=== PATIENT | female | born 1935 | race Native Hawaiian/Other Pacific Islander ===

== ENCOUNTER 2018-04-18 14:51 | Observation (INO) | payer MEDICARE, OTHER ==
[2018-04-18] VITALS (7 sets, daily range): BP systolic 102–138; BP diastolic 55–89; PULSE 73–78; RESP 18–20; TEMP 98.2–98.5; O2SAT 94–96
[~2018-04-18] VITALS: Ht 157.5 cm; Wt 70.0 kg
[~2018-04-18 14:51] MED LIST: CHOL4 PO; Calcium Carbonate CHEW; ENOX80P SQ; KCL20 PO; MAGN400 PO; MEGE40TA PO; MIRTA15 PO; PROT40TA PO; TRAM50 PO; ZOFR8TAB PO
[2018-04-18] MEDS ORDERED: SODIUM CHLOR 0.9% 1000 ML INJ 1,000 ML IV ONE (15:08)
[2018-04-18] MEDS ORDERED: ONDANSETRON ODT 4 MG TAB PO/SL ONE (15:15)
[2018-04-18] MEDS ORDERED: SODIUM CHLORIDE 0.9% FLUSH 10 ML FLUSH IVF PRN (15:15)
--- NOTE | 2018-04-18 15:20 | PD ---
HPI Chief Complaint: Syncope/Near-Syncope Time Seen by Provider: 14:57 Travel History International Travel<30 days: No Contact w/Intl Traveler<30days: No Traveled to known affect area: No History of Present Illness HPI The patient is a 82-year-old female who presents to emergency department via EMS for near syncope. The patient was at a park earlier today, sitting for prolonged period of time, which she suddenly became lightheaded, dizzy, and had a near syncopal episode. The patient states she became nauseated and broke out in a sweat. The patient was administered IV fluids by eating prior to arrival and her symptoms have significantly improved. The patient does states she has had some similar episodes in the past at home, will lay down and her symptoms will improve. However, the patient thinks she was sitting upright for too long today. The patient does have a history of multiple myeloma and is currently treated by Dr. Ascencio the oncologist. The patient is also followed by her layout technician, Dr. Zuleta who has recently performed an echocardiogram with an EF of 45%. The patient did complain of mild substernal chest discomfort after the episode today which has improved, but is still present upon arrival. She denies any acute shortness of breath. PFSH Past Medical History Arthritis: Yes Asthma: Yes ( YOUTH) Blood Disorders: No Cancer: No Cardiovascular Problems: Yes High Cholesterol: No Chest Pain: Yes Congestive Heart Failure: No Cerebrovascular Accident: No Diabetes: No Endocrine: No Gastrointestinal Disorders: Yes Glaucoma: Yes (LEFT EYE) Genitourinary: Yes Hiatal Hernia: Yes Hypertension: Yes Immune Disorder: No Implanted Vascular Access Dvce: Yes Musculoskeletal: Yes Neurologic: No Psychiatric: No Reproductive: No Respiratory: No Seizures: No ?: Not Menopausal: Yes Past Surgical History Abdominal Surgery: Yes (APPY, CHOLECYSTECTOMY) Appendectomy: Yes Cardiac Surgery: Yes (CARDIAC CATH 10/06, 2 YEARS BEFORE THAT) Cholecystectomy: Yes Ear Surgery: No Endocrine Surgery: No Genitourinary Surgery: No Gynecologic Surgery: No Joint Replacement: Yes (LEFT KNEE REPLACEMENT) Oral Surgery: No Other Surgery: Yes Social History Alcohol Use: No Tobacco Use: No Substance Use: No Allergies-Medications (Allergen,Severity, Reaction): Coded Allergies: acetaminophen (Unverified Allergy, Severe, Rash, 07/08/17) ITCHING ALSO. PERCOCET ALLERGY INFORMATION PROVIDED BY PATIENT'S DOCTOR WHO IS ALSO HER BROTHER oxycodone (Unverified Allergy, Severe, Rash, 07/08/17) ITCHING ALSO. PERCOCET ALLERGY INFORMATION PROVIDED BY PATIENT'S DOCTOR WHO IS ALSO HER BROTHER rofecoxib (Unverified Allergy, Severe, ITCHING, 07/08/17) Reported Meds & Prescriptions Reported Meds & Active Scripts Active Reported Multiple Vitamin 1 Tab 1 Tab PO DAILY Imodium A-D (Loperamide HCl) 2 Mg Capsule 2 Mg PO Q6H PRN Revlimid (Lenalidomide) 10 Mg Capsule 10 Mg PO DAILY Lexapro (Escitalopram Oxalate) 20 Mg Tab 10 Mg PO DAILY Vasotec (Enalapril Maleate) 5 Mg Tab 5 Mg PO BID Calcium 600 with Vitamin D (Calcium Carbonate-Cholecalciferol) 600-400 mg-Unit Tab 1 Tab PO DAILY Eliquis (Apixaban) 5 Mg Tab 5 Mg PO BID Review of Systems Except as stated in HPI: all other systems reviewed are Neg HENT: Positive: Lightheadedness Cardiovascular: Positive: Chest Pain or Discomfort, Diaphoresis, Syncope (Near- syncope) Respiratory: No: Shortness of Breath Gastrointestinal: Positive: Nausea, No: Vomiting, Abdominal Pain Musculoskeletal: Positive: Weakness Neurologic: Positive: Weakness, Dizziness, Syncope (Near-syncope) Physical Exam Narrative GENERAL: Awake, alert, pleasant 82-year-old female who appears her stated age and is in no acute respiratory distress. SKIN: Focused skin assessment warm/dry. HEAD: Atraumatic. Normocephalic. EYES: No injection or drainage. ENT: No nasal bleeding or discharge. Mucous membranes pink and moist. NECK: Trachea midline. No JVD. CARDIOVASCULAR: Regular rate and rhythm. No murmur appreciated. RESPIRATORY: No accessory muscle use. Clear to auscultation. Breath sounds equal bilaterally. GASTROINTESTINAL: Abdomen soft, non-tender, nondistended. MUSCULOSKELETAL: No obvious deformities. No clubbing. No cyanosis. Trace edema bilaterally. NEUROLOGICAL: Awake and alert. No obvious cranial nerve deficits. Motor grossly within normal limits. Normal speech. PSYCHIATRIC: Appropriate mood and affect; insight and judgment normal. Data Data Last Documented VS Vital Signs Date Time Temp Pulse Resp B/P (MAP) Pulse Ox O2 Delivery O2 Flow Rate FiO2 04/18/18 16:28 74 20 113/57 (75) 76 20 127/59 (81) 82 20 102/55 (71) 04/18/18 16:00 96 Room Air 04/18/18 15:16 98.5 Orders Orders Electrocardiogram (04/18/18 15:08) Complete Blood Count With Diff (04/18/18 15:08) Comprehensive Metabolic Panel (04/18/18 15:08) Magnesium (Mg) (04/18/18 15:08) Ckmb (Isoenzyme) Profile (04/18/18 15:08) Troponin I (04/18/18 15:08) Ecg Monitoring (04/18/18 15:08) Iv Access Insert/Monitor (04/18/18 15:08) Oximetry (04/18/18 15:08) Ondansetron Odt (Zofran Odt) (04/18/18 15:15) Sodium Chloride 0.9% Flush (Ns Flush) (04/18/18 15:15) Sodium Chlor 0.9% 1000 Ml Inj (Ns 1000 M (04/18/18 15:08) Orthostatic Vital Signs (04/18/18 15:08) Sodium Chlorid 0.9% 500 Ml Inj (Ns 500 M (04/18/18 16:15) Consult Cardiology (04/18/18 ) Place In Observation (04/18/18 ) Code Status (04/18/18 16:38) Vital Signs (Adult) Q4H (04/18/18 16:38) Activity Oob Ad Annette (04/18/18 16:38) Postal Service Clerk / Telemetry GEOVANNA.Q8H (04/18/18 16:38) Diet Heart Healthy (04/18/18 Dinner) Sodium Chloride 0.9% Flush (Ns Flush) (04/18/18 16:45) Sodium Chloride 0.9% Flush (Ns Flush) (04/18/18 21:00) Complete Blood Count With Diff (04/19/18 06:00) Basic Metabolic Panel (Bmp) (04/19/18 06:00) Holter Monitor Recording (04/18/18 ) Us Carotid Arteries Comp Bilat (04/18/18 ) 1/2 Ns + Kcl 20 Meq Inj (1/2 Ns + Kcl 20 (04/18/18 16:45) Consult Pt Eval & Treat (04/18/18 16:38) Enalapril (Vasotec) (04/18/18 21:00) Patient Own Medication (04/19/18 09:00) Escitalopram (Lexapro) (04/19/18 09:00) Admit Order (Ed Use Only) (04/18/18 16:50) Labs Laboratory Tests Test 04/18/18 15:30 White Blood Count 3.9 TH/MM3 Red Blood Count 3.95 MIL/MM3 Hemoglobin 12.1 GM/DL Hematocrit 36.1 % Mean Corpuscular Volume 91.6 FL Mean Corpuscular Hemoglobin 30.7 PG Mean Corpuscular Hemoglobin Concent 33.5 % Red Cell Distribution Width 17.1 % Platelet Count 168 TH/MM3 Mean Platelet Volume 9.0 FL Neutrophils (%) (Auto) 69.5 % Lymphocytes (%) (Auto) 17.5 % Monocytes (%) (Auto) 10.0 % Eosinophils (%) (Auto) 2.6 % Basophils (%) (Auto) 0.4 % Neutrophils # (Auto) 2.7 TH/MM3 Lymphocytes # (Auto) 0.7 TH/MM3 Monocytes # (Auto) 0.4 TH/MM3 Eosinophils # (Auto) 0.1 TH/MM3 Basophils # (Auto) 0.0 TH/MM3 CBC Comment DIFF FINAL Differential Comment Blood Urea Nitrogen 22 MG/DL Creatinine 1.23 MG/DL Random Glucose 98 MG/DL Total Protein 6.7 GM/DL Albumin 2.2 GM/DL Calcium Level 7.8 MG/DL Magnesium Level 1.9 MG/DL Alkaline Phosphatase 67 U/L Aspartate Amino Transf (AST/SGOT) 11 U/L Alanine Aminotransferase (ALT/SGPT) 16 U/L Total Bilirubin 0.7 MG/DL Sodium Level 142 MEQ/L Potassium Level 3.6 MEQ/L Chloride Level 110 MEQ/L Carbon Dioxide Level 25.4 MEQ/L Anion Gap 7 MEQ/L Estimat Glomerular Filtration Rate 42 ML/MIN Total Creatine Kinase 28 U/L Troponin I LESS THAN 0.02 NG/ML MDM Medical Decision Making Medical Screen Exam Complete: Yes Emergency Medical Condition: Yes Medical Record Reviewed: Yes Interpretation(s) EKG reveals sinus rhythm with frequent ventricular premature complex, trigeminy. Nonspecific T-wave changes. Moderate intraventricular conduction delay. Laboratory Tests Test 04/18/18 15:30 White Blood Count 3.9 TH/MM3 Red Blood Count 3.95 MIL/MM3 Hemoglobin 12.1 GM/DL Hematocrit 36.1 % Mean Corpuscular Volume 91.6 FL Mean Corpuscular Hemoglobin 30.7 PG Mean Corpuscular Hemoglobin Concent 33.5 % Red Cell Distribution Width 17.1 % Platelet Count 168 TH/MM3 Mean Platelet Volume 9.0 FL Neutrophils (%) (Auto) 69.5 % Lymphocytes (%) (Auto) 17.5 % Monocytes (%) (Auto) 10.0 % Eosinophils (%) (Auto) 2.6 % Basophils (%) (Auto) 0.4 % Neutrophils # (Auto) 2.7 TH/MM3 Lymphocytes # (Auto) 0.7 TH/MM3 Monocytes # (Auto) 0.4 TH/MM3 Eosinophils # (Auto) 0.1 TH/MM3 Basophils # (Auto) 0.0 TH/MM3 CBC Comment DIFF FINAL Differential Comment Blood Urea Nitrogen 22 MG/DL Creatinine 1.23 MG/DL Random Glucose 98 MG/DL Total Protein 6.7 GM/DL Albumin 2.2 GM/DL Calcium Level 7.8 MG/DL Magnesium Level 1.9 MG/DL Alkaline Phosphatase 67 U/L Aspartate Amino Transf (AST/SGOT) 11 U/L Alanine Aminotransferase (ALT/SGPT) 16 U/L Total Bilirubin 0.7 MG/DL Sodium Level 142 MEQ/L Potassium Level 3.6 MEQ/L Chloride Level 110 MEQ/L Carbon Dioxide Level 25.4 MEQ/L Anion Gap 7 MEQ/L Estimat Glomerular Filtration Rate 42 ML/MIN Total Creatine Kinase 28 U/L Troponin I LESS THAN 0.02 NG/ML Differential Diagnosis Differential diagnosis includes vasovagal syncope, cardiogenic syncope, arrhythmia, electrolyte abnormality, dehydration, overexertion, deconditioning, symptomatic anemia. Narrative Course IV was established, labs are drawn and sent, and the patient was placed on cardiac telemetry monitoring and continuous pulse oximetry monitoring. EKG was ordered and interpreted. Orthostatic vital signs are obtained. The patient was administered IV fluids. The patient's creatinine was slightly elevated, 1.23, baseline appears to be 0.7-0.8, most likely secondary to mild dehydration. Initial troponin was less than 0.02. The patient's EKG did reveal trigeminy, patient has been evaluated by her layout technician, Dr. Zuleta, recently. I discussed the patient with her layout technician, Dr. Zuleta, at 4:15 PM. He requested the patient be 23 hour observation to the medical service with a consultation to his service and the on-call layout technician will evaluate the patient. The patient does have acute kidney injury, trigeminy, with near syncope. Could be dehydration and orthostatic changes versus arrhythmia. Therefore, I believe it is reasonable to make the patient a 23 hour observation. Physician Communication Physician Communication The on-call [facility] doctor was paged for 23 hour observation. I discussed patient with Dr. Zacarias who agrees with 23 hour observation. Diagnosis Primary Impression: Near syncope Additional Impressions: Acute kidney injury Trigeminy Admitting Information Admitting Physician Requests: Observation Condition: Stable Sarwat Ramos MD April 18, 2018 15:20
[2018-04-18 15:53] LABS: AUTOMATED NEUTROPHIL # 2.7 TH/MM3 (1.8-7.7); BASOPHIL % 0.4 % (0.0-2.0); EOSINOPHIL # 0.1 TH/MM3 (0-0.4); EOSINOPHIL % 2.6 % (0.0-4.0); HEMATOCRIT 36.1 % (35.0-46.0); HEMOGLOBIN 12.1 GM/DL (11.6-15.3); LYMPH % 17.5 % (9.0-44.0); LYMPHOCYTE # 0.7 TH/MM3 (1.0-4.8); MEAN CELL VOLUME 91.6 FL (80.0-100.0); MEAN CORPUSCULAR HEMOGLOBIN 30.7 PG (27.0-34.0); MEAN CORPUSCULAR HGB CONC 33.5 % (32.0-36.0); MONOCYTE # 0.4 TH/MM3 (0-0.9); NEUT % 69.5 % (16.0-70.0); PLATELET COUNT 168 TH/MM3 (150-450); RED BLOOD COUNT 3.95 MIL/MM3 (4.00-5.30); RED CELL DISTRIBUTION WIDTH 17.1 % (11.6-17.2); WHITE BLOOD COUNT 3.9 TH/MM3 (4.0-11.0)
[2018-04-18 16:02] LABS: ALBUMIN 2.2 GM/DL (3.4-5.0); AST (GOT) 11 U/L (15-37); BICARBONATE 25.4 MEQ/L (21.0-32.0); BLOOD UREA NITROGEN 22 MG/DL (7-18); CALCIUM 7.8 MG/DL (8.5-10.1); CHLORIDE 110 MEQ/L (98-107); CREATININE 1.23 MG/DL (0.50-1.00); GLOMERULAR FILTRATION RATE 42 ML/MIN (>89); GLUCOSE,RANDOM 98 MG/DL (74-106); MAGNESIUM 1.9 MG/DL (1.5-2.5); SODIUM (NA) 142 MEQ/L (136-145)
[2018-04-18 16:03] LABS: ALT (GPT) 16 U/L (10-53)
[2018-04-18 16:07] LABS: ALKALINE PHOSPHATASE 67 U/L (45-117); TOTAL BILIRUBIN ADULT 0.7 MG/DL (0.2-1.0); TOTAL PROTEIN 6.7 GM/DL (6.4-8.2); TROPONIN I LESS THAN 0.02 NG/ML (0.02-0.05)
[2018-04-18] MEDS ORDERED: SODIUM CHLORID 0.9% 500 ML INJ 500 ML IV ONE (16:15)
[2018-04-18] MEDS ORDERED: APIX5TAB PO (16:16)
[2018-04-18] MEDS ORDERED: LEXA20TA PO (16:16)
[2018-04-18] MEDS ORDERED: CALC1TAB87 PO (16:16)
[2018-04-18] MEDS ORDERED: LENA10CA PO (16:16)
[2018-04-18] MEDS ORDERED: ENAL5TAB98 PO (16:16)
[2018-04-18] MEDS ORDERED: MULTTAB67 PO (16:16)
[2018-04-18] MEDS ORDERED: LOPE-1 PO (16:16)
[2018-04-18] MEDS ORDERED: SODIUM CHLORIDE 0.9% FLUSH 10 ML FLUSH IV FLUSH PRN (16:45)
--- NOTE | 2018-04-18 17:30 | HHI.HP ---
HPI Service [facility] Hospitalists Primary Care Physician Kaylynn Leary MD Admission Diagnosis Near-syncope, trigeminy, acute kidney injury Chief Complaint: Near syncope Travel History International Travel<30 Days: No Contact w/Intl Traveler <30 Da: No Traveled to Known Affected Are: No History of Present Illness Pt is an 82 y/o F with multiple myeloma under the care of Dr. Robert Ascencio. Pt presented to the ER with c/o near syncopal episode prior to arrival. Pt states that she had been sitting for an extended period of time. Pt reports that she suddenly became lightheaded and nearly passed out. Pt did NOT fall. Pt did NOT suffer any injuries with this episode. Pt denies any recent trauma. Pt reports that the episode lasted for approximately 30 minutes and then resolved spontaneously. Pt was able to eat and drink prior to arrival. When I evaluated the pt in the ER, she appeared quite comfortable and had NO acute complaints. Pt denied chest pain although ER physician noted c/o mild chest pain. Pt had echocardiogram with her Rejected Items Clerk, Dr. Zuleta. Echocardiogram performed (04/09/16) showed EF of 45%. Pt admitted to observation status at [facility] Review of Systems Constitutional: DENIES: Diaphoretic episodes, Fatigue, Fever, Weight gain, Weight loss, Chills, Dizziness, Change in appetite, Night Sweats Endocrine: DENIES: Heat/cold intolerance, Polydipsia, Polyuria, Polyphagia Eyes: DENIES: Blurred vision, Diplopia, Eye inflammation, Eye pain, Vision loss , Photosensitivity, Double Vision Ears, nose, mouth, throat: DENIES: Tinnitus, Hearing loss, Vertigo, Nasal discharge, Oral lesions, Throat pain, Hoarseness, Ear Pain, Running Nose, Epistaxis, Sinus Pain, Toothache, Odynophagia Respiratory: DENIES: Apneas, Cough, Snoring, Wheezing, Hemoptysis, Sputum production, Shortness of breath Cardiovascular: DENIES: Chest pain, Palpitations, Syncope, Dyspnea on Exertion , PND, Lower Extremity Edema, Orthopnea, Claudication Gastrointestinal: DENIES: Abdominal pain, Black stools, Bloody stools, BRB per rectum, Constipation, Diarrhea, GERD, Nausea, Reflux, Vomiting, Difficulty Swallowing, Anorexia Genitourinary: DENIES: Urinary frequency, Urinary incontinence, Urgency, Hematuria, Dysuria, Nocturia Musculoskeletal: DENIES: Joint pain, Muscle aches, Stiffness, Joint Swelling, Back pain, Neck pain Integumentary: DENIES: Abnormal pigmentation, Pruritus, Rash, Nail changes, Breast masses, Breast skin changes, Nipple discharge Hematologic/lymphatic: DENIES: Bruising, Lymphadenopathy Immunologic/allergic: DENIES: Eczema, Urticaria Neurologic: DENIES: Abnormal gait, Headache, Localized weakness, Paresthesias, Seizures, Speech Problems, Tremor, Poor Balance Psychiatric: DENIES: Anxiety, Confusion, Mood changes, Depression, Hallucinations, Agitation, Suicidal Ideation, Homicidal Ideation, Delusions, History of Bipolar, History of Schizophrenia Past Family Social History Past Medical History Anemia Arthritis Blood Clots - Glaucoma - Hyperlipidemia - Left arm thrombophlebitis - Multiple Myeloma (Stage III IgG lambda multiple myeloma. She presented with increased back pain, - mild renal insufficiency - chronic anemia Past Surgical History Anal fissurectomy Appendectomy Cataract removal Cholecystectomy Knee replacement Colonoscopy in 2008 Reported Medications Reported Meds & Active Scripts Active Reported Multiple Vitamin 1 Tab 1 Tab PO DAILY Imodium A-D (Loperamide HCl) 2 Mg Capsule 2 Mg PO Q6H PRN Revlimid (Lenalidomide) 10 Mg Capsule 10 Mg PO DAILY Lexapro (Escitalopram Oxalate) 20 Mg Tab 10 Mg PO DAILY Vasotec (Enalapril Maleate) 5 Mg Tab 5 Mg PO BID Calcium 600 with Vitamin D (Calcium Carbonate-Cholecalciferol) 600-400 mg-Unit Tab 1 Tab PO DAILY Eliquis (Apixaban) 5 Mg Tab 5 Mg PO BID Allergies: Coded Allergies: acetaminophen (Unverified Allergy, Severe, Rash, 07/08/17) ITCHING ALSO. PERCOCET ALLERGY INFORMATION PROVIDED BY PATIENT'S DOCTOR WHO IS ALSO HER BROTHER oxycodone (Unverified Allergy, Severe, Rash, 07/08/17) ITCHING ALSO. PERCOCET ALLERGY INFORMATION PROVIDED BY PATIENT'S DOCTOR WHO IS ALSO HER BROTHER rofecoxib (Unverified Allergy, Severe, ITCHING, 07/08/17) Family History Ms. Lowe has 2 brothers: 2 alive. She has 1 sister who is alive. She has 1 son who is alive. Social History Ms. Lowe is . Ms. Loew has never smoked. She has no history of drinking Physical Exam Vital Signs Vital Signs Date Time Temp Pulse Resp B/P (MAP) Pulse Ox O2 Delivery O2 Flow Rate FiO2 04/18/18 16:28 74 20 113/57 (75) 76 20 127/59 (81) 82 20 102/55 (71) 04/18/18 16:00 78 18 138/89 (105) 96 Room Air 04/18/18 15:16 98.5 74 18 125/56 (79) 95 Room Air 04/18/18 15:16 78 20 96 Room Air 04/18/18 15:13 98.5 78 18 125/56 (79) 94 Room Air Physical Exam GENERAL: This is a well-nourished, well-developed patient, in no apparent distress. SKIN: No rashes, ecchymoses or lesions. Cool and dry. HEAD: Atraumatic. Normocephalic. No temporal or scalp tenderness. EYES: Pupils equal round and reactive. Extraocular motions intact. No scleral icterus. No injection or drainage. ENT: Nose without bleeding, purulent drainage or septal hematoma. Throat without erythema, tonsillar hypertrophy or exudate. Uvula midline. Airway patent. NECK: Trachea midline. No JVD or lymphadenopathy. Supple, nontender, no meningeal signs. CARDIOVASCULAR: Regular rate and rhythm without murmurs, gallops, or rubs. RESPIRATORY: Clear to auscultation. Breath sounds equal bilaterally. No wheezes , rales, or rhonchi. GASTROINTESTINAL: Abdomen soft, non-tender, nondistended. No hepato-splenomegaly , or palpable masses. No guarding. MUSCULOSKELETAL: Extremities without clubbing, cyanosis, or edema. No joint tenderness, effusion, or edema noted. No calf tenderness. Negative Homans sign bilaterally. NEUROLOGICAL: Awake and alert. Cranial nerves II through XII intact. Motor and sensory grossly within normal limits. Five out of 5 muscle strength in all muscle groups. Normal speech. Laboratory Laboratory Tests Test 04/18/18 15:30 White Blood Count 3.9 Red Blood Count 3.95 Hemoglobin 12.1 Hematocrit 36.1 Mean Corpuscular Volume 91.6 Mean Corpuscular Hemoglobin 30.7 Mean Corpuscular Hemoglobin Concent 33.5 Red Cell Distribution Width 17.1 Platelet Count 168 Mean Platelet Volume 9.0 Neutrophils (%) (Auto) 69.5 Lymphocytes (%) (Auto) 17.5 Monocytes (%) (Auto) 10.0 Eosinophils (%) (Auto) 2.6 Basophils (%) (Auto) 0.4 Neutrophils # (Auto) 2.7 Lymphocytes # (Auto) 0.7 Monocytes # (Auto) 0.4 Eosinophils # (Auto) 0.1 Basophils # (Auto) 0.0 CBC Comment DIFF FINAL Differential Comment Blood Urea Nitrogen 22 Creatinine 1.23 Random Glucose 98 Total Protein 6.7 Albumin 2.2 Calcium Level 7.8 Magnesium Level 1.9 Alkaline Phosphatase 67 Aspartate Amino Transf (AST/SGOT) 11 Alanine Aminotransferase (ALT/SGPT) 16 Total Bilirubin 0.7 Sodium Level 142 Potassium Level 3.6 Chloride Level 110 Carbon Dioxide Level 25.4 Anion Gap 7 Estimat Glomerular Filtration Rate 42 Total Creatine Kinase 28 Troponin I LESS THAN 0.02 Result Diagram: 04/18/18 1530 04/18/18 1530 Imaging Last Impressions Carotid Artery Ultrasound 04/19/18 0000 Signed Impressions: CONCLUSION: 1. There is tortuosity of the internal and external vessels bilaterally. 2. No focal high-grade or hemodynamically significant stenosis is demonstrated . Caprini VTE Risk Assessment Caprini VTE Risk Assessment: Mod/High Risk (score >= 2) Caprini Risk Assessment Model Point Value = 1 Point Value = 2 Point Value = 3 Point Value = 5 Age 41-60 Minor surgery BMI > 25 kg/m2 Swollen legs Varicose veins or History of unexplained or recurrent spontaneous Oral contraceptives or hormone replacement Sepsis (< 1 month) Serious lung disease, including pneumonia (< 1 month) Abnormal pulmonary function Acute myocardial infarction Congestive heart failure (< 1 month) History of inflammatory bowel disease Medical patient at bed rest Age 61-74 Arthroscopic surgery Major open surgery (> 45 min) Laparoscopic surgery (> 45 min) Malignancy Confined to bed (> 72 hours) Immobilizing plaster cast Central venous access Age >= 75 History of VTE Family history of VTE Factor V Leiden Prothrombin [id number] Lupus anticoagulant Anticardiolipin antibodies Elevated serum homocysteine Heparin-induced thrombocytopenia Other congenital or acquired thrombophilia Stroke (< 1 month) Elective arthroplasty Hip, pelvis, or leg fracture Acute spinal cord injury (< 1 month) Prophylaxis Regimen Total Risk Factor Score Risk Level Prophylaxis Regimen 0-1 Low Early ambulation 2 Moderate Order ONE of the following: *Sequential Compression Device (SCD) *Heparin 5000 units SQ BID 3-4 Higher Order ONE of the following medications: *Heparin 5000 units SQ TID *Enoxaparin/Lovenox 40 mg SQ daily (WT < 150 kg, CrCl > 30 mL/min) *Enoxaparin/Lovenox 30 mg SQ daily (WT < 150 kg, CrCl > 10-29 mL/min) *Enoxaparin/Lovenox 30 mg SQ BID (WT < 150 kg, CrCl > 30 mL/min) AND/OR *Sequential Compression Device (SCD) 5 or more Highest Order ONE of the following medications: *Heparin 5000 units SQ TID (Preferred with Epidurals) *Enoxaparin/Lovenox 40 mg SQ daily (WT < 150 kg, CrCl > 30 mL/min) *Enoxaparin/Lovenox 30 mg SQ daily (WT < 150 kg, CrCl > 10-29 mL/min) *Enoxaparin/Lovenox 30 mg SQ BID (WT < 150 kg, CrCl > 30 mL/min) AND *Sequential Compression Device (SCD) Assessment and Plan Problem List: (1) Near syncope ICD Codes: R55 - Syncope and collapse Status: Acute Plan: - Pt is an 82 y/o F with multiple myeloma under the care of Dr. Robert Ascencio. Pt presented to the ER with c/o near syncopal episode prior to arrival. - Pt states that she had been sitting for an extended period of time. Pt reports that she suddenly became lightheaded and nearly passed out. - Pt did NOT fall. Pt did NOT suffer any injuries with this episode. Pt denies any recent trauma. - Pt reports that the episode lasted for approximately 30 minutes and then resolved spontaneously. Pt was able to eat and drink prior to arrival. - When I evaluated the pt in the ER, she appeared quite comfortable and had NO acute complaints. Pt denied chest pain although ER physician noted c/o mild chest pain. - Pt had echocardiogram with her Rejected Items Clerk, Dr. Zuleta. Echocardiogram performed (04/09/16) showed EF of 45%. - observe on telemetry - obtain holter - consult Cardiology - IVFs - repeat CBC, BMP, Mag in AM - obtain PT eval - b/l SCDs for DVT prophylaxis - supportive care - case discussed by phone with the pt's brother, Dr. Kaylynn Ahumada (5/26/18) (2) Multiple myeloma ICD Codes: C90.00 - Multiple myeloma Status: Acute Plan: - Pt follows with Dr. Robert Ascencio, Oncology (3) HTN (hypertension) ICD Codes: I10 - HTN (hypertension) Status: Chronic Plan: - stable - continue outpt lisinopril Problem Qualifiers (1) Multiple myeloma: Qualified Codes: C90.00 - Multiple myeloma not having achieved remission (2) HTN (hypertension): Qualified Codes: I10 - Essential (primary) hypertension Uday Zacarias DO April 18, 2018 17:30
[2018-04-18] MEDS: APIXABAN 5 MG TABLET PO SCH (20:40)
[2018-04-18] MEDS: ENALAPRIL MALEATE 5 MG TAB PO SCH (20:40)
[2018-04-18] MEDS: SODIUM CHLORIDE 0.9% FLUSH 10 ML FLUSH IV FLUSH SCH (20:40)
[2018-04-18] MEDS: 1/2 NS + KCL 20 MEQ INJ 1,000 ML IV SCH (20:40)
[2018-04-19 01:03] VITALS: BP 142/71; PULSE 51; RESP 17; TEMP 98.2; O2SAT 94
[2018-04-19 02:54] VITALS: BP 143/68; PULSE 74; RESP 18; TEMP 97.9; O2SAT 94
[2018-04-19] MEDS ORDERED: traMADol HCL 50 MG TAB PO PRN (03:30)
[2018-04-19] MEDS: 1/2 NS + KCL 20 MEQ INJ 1,000 ML IV SCH (03:31)
[2018-04-19 07:54] LABS: AUTOMATED NEUTROPHIL # 1.5 TH/MM3 (1.8-7.7); BASOPHIL % 0.8 % (0.0-2.0); EOSINOPHIL # 0.2 TH/MM3 (0-0.4); EOSINOPHIL % 5.7 % (0.0-4.0); HEMATOCRIT 32.5 % (35.0-46.0); HEMOGLOBIN 10.9 GM/DL (11.6-15.3); LYMPH % 23.4 % (9.0-44.0); LYMPHOCYTE # 0.7 TH/MM3 (1.0-4.8); MEAN CELL VOLUME 91.4 FL (80.0-100.0); MEAN CORPUSCULAR HEMOGLOBIN 30.6 PG (27.0-34.0); MEAN CORPUSCULAR HGB CONC 33.5 % (32.0-36.0); MEAN PLATELET VOLUME 9.3 FL (7.0-11.0); MONO % 16.6 % (0.0-8.0); MONOCYTE # 0.5 TH/MM3 (0-0.9); NEUT % 53.5 % (16.0-70.0); PLATELET COUNT 168 TH/MM3 (150-450); RED BLOOD COUNT 3.55 MIL/MM3 (4.00-5.30); RED CELL DISTRIBUTION WIDTH 17.1 % (11.6-17.2); WHITE BLOOD COUNT 2.8 TH/MM3 (4.0-11.0)
[2018-04-19 08:12] LABS: BICARBONATE 22.8 MEQ/L (21.0-32.0); CALCIUM 7.5 MG/DL (8.5-10.1); CREATININE 0.7 MG/DL (0.50-1.00)
[2018-04-19 08:26] VITALS: PULSE 71
[2018-04-19] MEDS: ENALAPRIL MALEATE 5 MG TAB PO SCH (08:54)
[2018-04-19] MEDS: SODIUM CHLORIDE 0.9% FLUSH 10 ML FLUSH IV FLUSH SCH (09:00)
[2018-04-19] MEDS ORDERED: ESCITALOPRAM OXALATE 10 MG TAB PO SCH (09:00)
[2018-04-19] MEDS ORDERED: LENALIDOMIDE 10 MG PO SCH (09:00)
[2018-04-19 09:01] VITALS: BP 143/70; PULSE 64; RESP 20; TEMP 98; O2SAT 94
--- NOTE | 2018-04-19 09:25 | MB ---
cc: Adama Guillory MD, Ashraf S MD DATE: 04/19/2018 REFERRING PHYSICIAN: Dr. Ramos. HEADER SET UP OPERATOR: Dr. Leon. REASON FOR CONSULTATION: Asked by Dr. Ramos to evaluate the patient with presyncope/syncope and trigeminy. HISTORY OF PRESENT ILLNESS: This is a pleasant 82-year-old woman with a past medical history significant for multiple myeloma, hypertension and arrhythmia, query paroxysmal atrial fibrillation. Yesterday while seated developed sudden onset lightheaded, dizziness, faintness. She reports having passed out for a couple of seconds. There was no associated shortness of breath, diaphoresis or nauseousness. When she presented to the emergency room, she reported mild chest discomfort. She is followed by Dr. Leon. She reports no past history of myocardial infarction or congestive heart failure. No recent episodes of chest pain with exertion or at rest suggestive of angina or congestive symptoms of orthopnea and paroxysmal nocturnal dyspnea. She has not had episodes of sustained palpitations or congestive symptoms of orthopnea and paroxysmal nocturnal dyspnea. In the emergency room ECG showed sinus rhythm, normal axis and intervals and ST-T segments within normal limits. Frequent PVCs in a trigeminy pattern. ST-T segment within normal limits. Creatinine was increased at 1.23 that improved to 0.7 on today's labs. Troponins less than 0.02. Potassium 3.6. Sodium 142. MEDICATIONS PRIOR TO ADMISSION: Imodium, Revlimid, Lexapro, Vasotec, calcium, Eliquis. PAST MEDICAL HISTORY: As noted and listed in EMR. REVIEW OF SYSTEMS: A 12-point review of systems reviewed and noted. No recent fever, chills, cough or sputum production. No recent gastrointestinal and genitourinary symptoms. SOCIAL HISTORY: She does not smoke or drink alcohol. No illicit drug use. PAST SURGICAL HISTORY: Status post left knee replacement. History of cardiac catheterization 09/2013. She reports no percutaneous intervention. Status post appendectomy and cholecystectomy. PHYSICAL EXAMINATION: GENERAL: Pleasant, in no acute distress, comfortable on room air. VITAL SIGNS: Temperature 98.2, pulse 73, blood pressure 116/64, O2 saturation 95%. HEENT: Anicteric. PERRLA. No xanthelasma. Flat JVD. No carotid bruits. LUNGS: Clear to auscultation. HEART: Regular rate and rhythm. No murmurs, gallops or rubs. ABDOMEN: Soft and nontender. EXTREMITIES: Without peripheral edema. LABORATORY DATA: WBC is 3.9, hemoglobin 12.1, hematocrit is 36.1, platelet count is 168,000. Sodium 144, potassium 3.6, BUN 14, creatinine 0.7, calcium 7.5. IMPRESSION: 1. Sudden onset dizziness, lightheadedness and near syncope/syncope, likely due to volume depletion, dehydration in the setting of antihypertension medication. 2. History of hypertension. 3. Atypical chest pain, troponin is negative for ACS. Status post cardiac catheterization, no PCI was performed. 4. Trigeminy. PLAN: 1. Continue IV fluid resuscitation. 2. Okay to discharge home from a cardiac standpoint. 3. Hold Vasotec on discharge. 4. Echocardiogram was ordered. 5. Patient instructed to drink liberal amount of fluids. 6. She was instructed to followup with Dr. Leon in 1-2 weeks after discharge for reevaluation. Thank you for allowing me to contribute to the patient's care. Thank you for this consultation. Adama Guillory MD NLV/TL , 08:49 AM , 09:24 AM
[2018-04-19] MEDS: APIXABAN 5 MG TABLET PO SCH (10:16)
--- NOTE | 2018-04-19 11:08 | RADRPT ---
EXAM DATE: 04/19/2018 10:56 AM EDT AGE/SEX: 82 years / Female INDICATIONS: Syncope. CLINICAL DATA: This is the patient's initial encounter. Patient reports that signs and symptoms have been present for 1 day and indicates a pain score of 0/10. MEDICAL/SURGICAL HISTORY: . Hypertension. Multiple myeloma. Hiatal hernia. Glaucoma, left ey e. . Appendectomy. Cholecystectomy. Cardiac catheterization. Left knee replacement. COMPARISON: No prior [facility] exams available for comparison. No external comparison. VELOCITY PARAMETERS: ICA/CCA Ratio: Right 2.4 , Left 1.8 ICA: Right 184 cm/sec, Left 140 cm/sec CCA: Right 77 cm/sec, Left 77 cm/sec ECA: Right 111 cm/sec, Left 86 cm/sec Vertebral: Right 84 cm/sec antegrade, Left 67 cm/sec antegrade FINDINGS: Right Carotid: No significant stenosis is visualized. The waveforms are within normal limits. There is tortuosity of the internal and external vessels. Left Carotid: No significant stenosis is visualized. The waveforms are within normal limits. There is tortuosity of the internal and external vessels. Other: None. CONCLUSION: 1. There is tortuosity of the internal and external vessels bilaterally. 2. No focal high-grade or hemodynamically significant stenosis is demonstrated. Electronically signed by: Jason Vasquez MD 04/19/2018 11:06 AM EDT
[2018-04-19 11:20] VITALS: BP 118/56; PULSE 60; RESP 20; TEMP 98; O2SAT 96
[2018-04-19 12:20] VITALS: PULSE 76
--- NOTE | 2018-04-19 12:45 | HHI.PR ---
Subjective Remarks No new complaints. Pt is tolerating PO intake. Pt denies N/V/D. Pt has already been cleared for discharge by Cardiology. Pt denies further episodes of dizziness or near syncope since admission. Pt is ambulating in the room without difficulty. Pt is eager for discharge and requesting to go home [facility]. Objective Vitals Vital Signs Date Time Temp Pulse Resp B/P (MAP) Pulse Ox O2 Delivery O2 Flow Rate FiO2 04/19/18 12:20 76 04/19/18 11:20 98.0 60 20 118/56 (76) 96 04/19/18 09:01 98.0 64 20 143/70 (94) 94 04/19/18 08:26 71 04/19/18 04:30 18 04/19/18 02:54 97.9 74 18 143/68 (93) 94 04/19/18 01:03 98.2 51 17 142/71 (94) 94 04/18/18 23:00 74 04/18/18 23:00 74 04/18/18 19:47 98.2 73 18 116/64 (81) 95 04/18/18 18:12 78 20 104/64 (77) 98 04/18/18 16:28 74 20 113/57 (75) 76 20 127/59 (81) 82 20 102/55 (71) 04/18/18 16:00 78 18 138/89 (105) 96 Room Air 04/18/18 15:16 98.5 74 18 125/56 (79) 95 Room Air 04/18/18 15:16 78 20 96 Room Air 04/18/18 15:13 98.5 78 18 125/56 (79) 94 Room Air 04/19/18 04/19/18 04/20/18 15:00 23:00 07:00 # Voids 2 Result Diagram: 04/19/18 0520 04/19/18 0530 Imaging Last Impressions Carotid Artery Ultrasound 04/19/18 0000 Signed Impressions: CONCLUSION: 1. There is tortuosity of the internal and external vessels bilaterally. 2. No focal high-grade or hemodynamically significant stenosis is demonstrated . Objective Remarks GENERAL: This is a well-nourished, well-developed patient, in no apparent distress. CARDIOVASCULAR: Regular rate and rhythm without murmurs, gallops, or rubs. RESPIRATORY: Clear to auscultation. Breath sounds equal bilaterally. No wheezes , rales, or rhonchi. GASTROINTESTINAL: Abdomen soft, non-tender, nondistended. Normal active bowel sounds MUSCULOSKELETAL: Extremities without clubbing, cyanosis, or edema. NEURO: Alert & Oriented x3, BLEVINS A/P Problem List: (1) Near syncope ICD Codes: R55 - Syncope and collapse Status: Acute Plan: - Pt is an 82 y/o F with multiple myeloma under the care of Dr. Robert Ascencio. Pt presented to the ER with c/o near syncopal episode prior to arrival. - Pt states that she had been sitting for an extended period of time. Pt reports that she suddenly became lightheaded and nearly passed out. - Pt did NOT fall. Pt did NOT suffer any injuries with this episode. Pt denies any recent trauma. - Pt reports that the episode lasted for approximately 30 minutes and then resolved spontaneously. Pt was able to eat and drink prior to arrival. - When I evaluated the pt in the ER, she appeared quite comfortable and had NO acute complaints. Pt denied chest pain although ER physician noted c/o mild chest pain. - Pt had echocardiogram with her Loan Review Analyst, Dr. Zuleta. Echocardiogram performed (04/09/16) showed EF of 45%. - telemetry --> NSR with - obtain holter. Pt may complete this at home & bring device back to [facility] for interpretation. - appreciate input from Cardiology. - Pt cleared for discharge by Cardiology. - Repeat blood work reviewed. Stable. - Discharge to home today. - See orders - Pt to f/u with Cardiology in 1 week. - case discussed by phone with the pt's brother/PCP, Dr. Kaylynn Ahumada (04/19/18) (2) Multiple myeloma ICD Codes: C90.00 - Multiple myeloma Status: Acute Plan: - Pt follows with Dr. Robert Ascencio, Oncology (3) HTN (hypertension) ICD Codes: I10 - HTN (hypertension) Status: Chronic Plan: - stable - Per Cardiology recommendations, will stop lisinopril (4) Atypical chest pain ICD Codes: R07.89 - Other chest pain Status: Resolved Plan: - pt's chest pain was resolved by the time I saw her 04/18/18 - Pt denies chest pain & is requesting discharge - Pt seen by Cardiology & NO further cardiac w/u recommended at this time - troponin --> negative - telemetry --> NSR - EKG --> NO acute ischemic changes Problem Qualifiers (1) Multiple myeloma: Qualified Codes: C90.00 - Multiple myeloma not having achieved remission (2) HTN (hypertension): Qualified Codes: I10 - Essential (primary) hypertension Uday Zacarias DO April 19, 2018 12:45
--- NOTE | 2018-04-19 12:46 | HHI.DCPOC ---
Discharge Care Plan Diagnosis: (1) Near syncope (2) Atypical chest pain (3) HTN (hypertension) Goals to Promote Your Health * To prevent worsening of your condition and complications * To maintain your health at the optimal level Directions to Meet Your Goals Take your medications as prescribed Follow your dietary instruction Follow activity as directed Keep your appointments as scheduled Take your immunizations and boosters as scheduled If your symptoms worsen call your PCP, if no PCP go to Urgent Care Center or Emergency Room Smoking is Dangerous to Your Health. Avoid second hand smoke Call the 24-hour hour crisis hotline for domestic abuse at Uday Zacarias DO April 19, 2018 12:46
--- NOTE | 2018-04-19 13:15 | EKG ---
Date Performed: 04/18/2018 Time Performed: 20:08:37 PTAGE: 82 years EKG: Sinus rhythm WITH FREQUENT VENTRICULAR PREMATURE COMPLEXES NONSPECIFIC T-WAVE ABNORMALITY Borderline left axis de viation ABNORMAL RHYTHM ECG Since PREVIOUS TRACING , no significant change noted PREVIOUS TRACIN04/18/2018 15.13 DOCTOR: Mg Brandt Interpretating Date/Time 04/19/2018 13:13:42
--- NOTE | 2018-04-19 13:15 | EKG ---
Date Performed: 04/18/2018 Time Performed: 15:13:05 PTAGE: 82 years EKG: Sinus rhythm WITH FREQUENT VENTRICULAR PREMATURE COMPLEXES BORDERLINE LEFT AXIS DEVIATION MODERATE INTRAVENTRICUL AR CONDUCTION DELAY NONSPECIFIC T-WAVE ABNORMALITY ABNORMAL RHYTHM ECG Since PREVIOUS TRACING , no significant change noted PREVIOUS TRACIN09/14/2014 15.29 DOCTOR: Mg Brandt Interpretating Date/Time 04/19/2018 13:13:08
== END 2018-04-19 16:15 | disposition home or self-care (01) ==
LOC: NEPE 14:51 → NEDA 16:56 → NEPFCDU 18:22
PROVIDERS: ADMIT Hospitalist; ATTEND Hospitalist
DX: R55 Syncope and collapse (principal); R07.89 Other chest pain; E86.0 Dehydration; I10 Essential (primary) hypertension; R00.8 Other abnormalities of heart beat; I49.3 Ventricular premature depolarization; C90.00 Multiple myeloma not having achieved remission; Z96.652 Presence of left artificial knee joint
CPT/HCPCS: 80048; 80053; 82550; 83735; 84484; 85025; 93005; 93880; 96361; 96365; 96366; G0378; J7030; J7040

== ENCOUNTER 2018-06-14 15:35 | Inpatient (IN) ==
--- NOTE | 2018-06-14 16:35 | ED ---
HPI General Chief complaint: Weakness Stated complaint: Weakness Time Seen by Provider: 06/14/18 16:14 Source: patient and EMS Mode of arrival: EMS History of Present Illness HPI Narrative: 82 y/o female states she feels weak all over. She states she is on chemotherapy pills that she got about last but denies having a Port or IV chemo yet. Complaint: generalized weakness Onset (ago): day(s) Duration: constant Location: generalized Migration: none Severity: mild Relieving factors: none Exacerbating factors: movement Associated symptoms: denies other symptoms Related Data Home Medications Medication Instructions Recorded Confirmed No Known Home Medications 06/14/18 06/14/18 Allergies Allergy/AdvReac Type Severity Reaction Status Date / Time acetaminophen Allergy Severe Rash Verified 06/14/18 17:01 oxycodone Allergy Severe Rash Verified 06/14/18 17:01 rofecoxib Allergy Severe ITCHING Verified 06/14/18 17:01 Review of Systems Except as stated in HPI: all other systems reviewed are negative PMFSH History History Provided By: Patient and Facilities Project Manager / EMT Medical History Medical History Multiple myeloma (Acute) Social History Social History Second Hand Smoke Exposure: No Smoking Status: Never smoker How Often Do You Have a Drink Containing Alcohol: Never Exam Narrative Exam Narrative: GENERAL: 82 y/o female in no apparent distress SKIN: Focused skin assessment warm/dry. HEAD: Atraumatic. Normocephalic. EYES: Pupils equal and round. No scleral icterus. No injection or drainage. ENT: No nasal bleeding or discharge. Mucous membranes pink and moist. NECK: Trachea midline. CARDIOVASCULAR: Regular rate and rhythm. RESPIRATORY: No accessory muscle use. Clear to auscultation. Breath sounds equal bilaterally. GASTROINTESTINAL: Abdomen soft, non-tender, nondistended. Hepatic and splenic margins not palpable. MUSCULOSKELETAL: No obvious deformities. No clubbing. No cyanosis. chronic edema per patient to bilateral lower legs NEUROLOGICAL: Awake. Motor grossly within normal limits. Normal speech. Course Reevaluation(s) Reevaluation #1: I spoke with Dr. 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 Patient's care was discussed, and care was transferred from Alessandra Vu MD to Joel Hernández. Sign Out Comment: follow doppler and reevaluate Last updated by Alessandra Vu MD at 06/14/18 18:44 Medical Decision Making MDM Narrative Medical decision making narrative: Will check blood work, urinalysis and reevaluate Differential Diagnosis Differential Diagnosis: Electrolyte abnormality, UTI, anemia, renal failure Lab Data Result diagrams: 06/14/18 16:50 06/14/18 16:50 Lab Results 06/14/18 06/14/18 06/14/18 Range/Units 16:50 16:50 18:07 WBC 3.7 L (4.0-11.0) th/mm3 RBC 4.31 (4.00-5.30) mil/mm3 Hgb 13.3 (11.6-15.3) gm/dL Hct 39.7 (35.0-46.0) % MCV 92.2 (80.0-100.0) fL MCH 30.9 (27.0-34.0) pg MCHC 33.5 (32.0-36.0) % RDW 18.7 H (11.6-17.2) % Plt Count 66 L D (150-450) th/mm3 MPV 8.9 (7.0-11.0) fL Prelim Diff (Auto) Slide review pending Neut % (Auto) 92.2 H (16.0-70.0) % Lymph % (Auto) 2.5 L (9.0-44.0) % [place] % (Auto) 5.2 (0.0-8.0) % Eos % (Auto) 0.0 (0.0-4.0) % Baso % (Auto) 0.1 (0.0-2.0) % Neut # (Auto) 3.4 (1.8-7.7) th/mm3 Lymph # (Auto) 0.1 L (1.0-4.8) th/mm3 [place] # (Auto) 0.2 (0.0-0.9) th/mm3 Eos # (Auto) 0.0 (0.0-0.4) th/mm3 Baso # (Auto) 0.0 (0.0-0.2) th/mm3 WBC Differential . Diff Scan Auto diff confirmed Differential Comment . Sodium 139 (136-145) meq/L Potassium 4.3 (3.5-5.1) meq/L Chloride 104 (98-107) meq/L Carbon Dioxide 29.8 (21.0-32.0) meq/L Anion Gap 5 (5-15) meq/L BUN 31 H (7-18) mg/dL Creatinine 0.63 (0.50-1.00) mg/dL Estimated GFR Greater than 89 (>89) mL/min Random Glucose 76 (74-106) mg/dL Calcium 7.6 L (8.5-10.1) mg/dL Total Creatine Kinase 45 (26-192) U/L Troponin I Less than 0.02 L (0.02-0.05) ng/mL Urine Color Yellow (Yellw/Straw) Urine Clarity Clear (Clear) Urine pH 6.0 (5.0-8.5) Ur Specific [place] 1.018 (1.002-1.035) Urine Protein Negative (Neg-Trace) mg/dL Urine Glucose (UA) Negative (Negative) mg/dL Urine Ketones Negative (Negative) mg/dL Urine Occult Blood Small H (Negative) Urine Nitrate Negative (Negative) Urine Bilirubin Negative (Negative) Urine Urobilinogen 2.0 H (Less than 2) mg/dL Ur Leukocyte Esterase Negative (Negative) Urine RBC 1 (0-3) /hpf Urine WBC 2 (0-5) /hpf Hyaline Casts 1 (0-3) /lpf Urine Mucus Few H (Occasional) /lpf Micro UA Comment Culture not ind Urine Culture Comments Culture not ind Imaging Data Radiologist's impression: Chest X-Ray 06/14/18 16:21 CONCLUSION: Remote right rib fractures. Minimal basilar atelectasis or scarring. Head CT 06/14/18 16:21 CONCLUSION: 1. No acute intracranial abnormality. . Venous Doppler Study 06/14/18 18:42 CONCLUSION: 1. The study is negative for bilateral lower extremity deep venous thrombosis. Discharge Plan Discharge Disposition Patient Disposition: 30 Still Patient Discharge Details Diagnosis: Cervical spinal mass Physicians Team ED Provider: Joel Hernández Primary Care Provider: Primary Care Tanvi Kearney Attending Provider: Mg Luz Other Providers: Jose Sorto Discharge Interventions Interventions: Vital Signs Last Done: 06/14/18 20:20 Status ED Status: Admitted Patient
--- NOTE | 2018-06-14 16:52 | XR ---
EXAM DATE: 06/14/2018 4:45 PM EDT AGE/SEX: 82 years / Female INDICATIONS: Palpitations. CLINICAL DATA: This is the patient's initial encounter. Patient reports that signs and symptoms have been present for 2 weeks and indicates a pain score of 0/10. MEDICAL/SURGICAL HISTORY: . Hypertension. Multiple myeloma. Hiatal hernia. Glaucoma, left eye. . Appendectomy. Cholecystectomy. Cardiac catheterization. Left knee replacement. COMPARISON: [facility] [place], CHEST SINGLE AP, 09/16/2014. . FINDINGS: Heart size mildly enlarged. No effusion or pneumothorax. Tortuous aorta. Mild scoliosis. Remote right -sided rib fractures. CONCLUSION: Remote right rib fractures. Minimal basilar atelectasis or scarring. Electronically signed by: Ernesto Oseguera MD 06/14/2018 4:51 PM EDT
--- NOTE | 2018-06-14 17:23 | CT ---
EXAM DATE: 06/14/2018 5:15 PM EDT AGE/SEX: 82 years / Female INDICATIONS: General weakness. CLINICAL DATA: This is the patient's initial encounter. Patient reports that signs and symptoms have been present for 1 day and indicates a pain score of 0/10. MEDICAL/SURGICAL HISTORY: . multiple myeloma None. RADIATION DOSE: 56.35 CTDI (mGy) COMPARISON: [facility] [place], CT BRAIN W/O CONTRAST, 09/12/2014. . TECHNIQUE: CT of the head without contrast. Using automated exposure control and adjustment of the mA and/or kV according to patient size, radiation dose was kept as low as reasonably achievable to ob tain optimal diagnostic quality images. DICOM format image data is available electronically for revi ew and comparison. FINDINGS: Cerebrum: The ventricles are normal for age. No evidence of midline shift, mass lesion, hemorrhage or acute infarction. No extraaxial fluid collections are seen. Posterior Fossa: The cerebellum and brainstem are intact. The 4th ventricle is midline. The cerebe llopontine angle is unremarkable. Extracranial: The visualized portion of the orbits is intact. Skull: The calvaria is intact. No evidence of skull fracture. CONCLUSION: 1. No acute intracranial abnormality. . Electronically signed by: Ernesto Oseguera MD 06/14/2018 5:22 PM EDT
[2018-06-14 17:44] LABS: Baso % (Auto) 0.1 % (0.0-2.0); Hematocrit 39.7 % (35.0-46.0); Hemoglobin 13.3 gm/dL (11.6-15.3); Lymph # (Auto) 0.1 th/mm3 (1.0-4.8); Lymph % (Auto) 2.5 % (9.0-44.0); Mean Corpuscular HGB Conc 33.5 % (32.0-36.0); Mean Corpuscular Hemoglobin 30.9 pg (27.0-34.0); Mean Corpuscular Volume 92.2 fL (80.0-100.0); Mean Platelet Volume 8.9 fL (7.0-11.0); Mono # (Auto) 0.2 th/mm3 (0.0-0.9); Mono % (Auto) 5.2 % (0.0-8.0); Neut # (Auto) 3.4 th/mm3 (1.8-7.7); Neut % (Auto) 92.2 % (16.0-70.0); Platelet Count 66 th/mm3 (150-450); Red Blood Count 4.31 mil/mm3 (4.00-5.30); Red Cell Distribution Width 18.7 % (11.6-17.2); White Blood Count 3.7 th/mm3 (4.0-11.0)
[2018-06-14 17:58] LABS: Anion Gap 5 meq/L (5-15); Blood Urea Nitrogen 31 mg/dL (7-18); Calcium 7.6 mg/dL (8.5-10.1); Carbon Dioxide 29.8 meq/L (21.0-32.0); Chloride 104 meq/L (98-107); Glomerular Filtration Rate Greater Than 89 mL/min (>89); Glucose,Random 76 mg/dL (74-106); Potassium 4.3 meq/L (3.5-5.1); Sodium 139 meq/L (136-145)
[2018-06-14 18:11] LABS: Creatine Kinase 45 U/L (26-192)
[2018-06-14 18:34] LABS: Bilirubin,Urine Negative (Negative); Clarity,Urine Clear (Clear); Color,Urine Yellow (Yellw/Straw); Glucose,Urine (UA) Negative (Negative); Hyaline Casts,Urine 1 /lpf (0-3); Leukocyte Esterase,Urine Negative (Negative); Mucus,Urine Few /lpf (Occasional); Nitrite,Urine Negative (Negative); Specific Gravity,Urine 1.018 (1.002-1.035)
--- NOTE | 2018-06-14 19:39 | US ---
EXAM DATE: 06/14/2018 7:33 PM EDT AGE/SEX: 82 years / Female INDICATIONS: Bilateral leg swelling. CLINICAL DATA: This is the patient's initial encounter. Patient reports that signs and symptoms have been present for 1 day and indicates a pain score of 3/10. MEDICAL/SURGICAL HISTORY: . Hypertension. Multiple myeloma. Hiatal hernia. Glaucoma, left eye. . Appendectomy. Cholecystectomy. Cardiac catheterization. Left knee replacement. COMPARISON: No prior exams available for comparison. TECHNIQUE: Venous ultrasound of both lower extremities was performed from the inguinal ligament to t he proximal calf. Real-time, color Doppler and spectral tracing, compression and augmentation techni ques were used. FINDINGS: Right Leg: Normal compression of the deep venous system from the inguinal region to the proximal suri f. No echogenic clot is seen. Normal response of the venous system to augmentation and respiration. Left Leg: Normal compression of the deep venous system from the inguinal region to the proximal calf . No echogenic clot is seen. Normal response of the venous system to augmentation and respiration. Other: Elongated right popliteal cyst measuring 5.5 x 1.6 x 0.8 cm. CONCLUSION: 1. The study is negative for bilateral lower extremity deep venous thrombosis. Electronically signed by: Elian Wooten MD 06/14/2018 7:37 PM EDT
[2018-06-14] MEDS ORDERED: Temazepam 15 MG Capsule PO PRN (20:19)
[2018-06-14] MEDS ORDERED: Bisacodyl 10 MG Supp RECTAL PRN (20:19)
[2018-06-14] MEDS: Senna/Docusate Sodium 8.6/50 MG Tablet PO SCH (21:04)
[2018-06-15 07:44] LABS: Baso % (Auto) 0.3 % (0.0-2.0); Eos % (Auto) 0.2 % (0.0-4.0); Hematocrit 41.8 % (35.0-46.0); Lymph % (Auto) 2.6 % (9.0-44.0); Mean Corpuscular HGB Conc 33.5 % (32.0-36.0); Mean Corpuscular Hemoglobin 30.6 pg (27.0-34.0); Mean Corpuscular Volume 91.4 fL (80.0-100.0); Mean Platelet Volume 8.4 fL (7.0-11.0); Mono % (Auto) 2.6 % (0.0-8.0); Neut # (Auto) 1.7 th/mm3 (1.8-7.7); Neut % (Auto) 94.3 % (16.0-70.0); Platelet Count 53 th/mm3 (150-450); Red Blood Count 4.57 mil/mm3 (4.00-5.30); Red Cell Distribution Width 18.7 % (11.6-17.2); White Blood Count 1.8 th/mm3 (4.0-11.0)
[2018-06-15 08:07] LABS: Alanine Aminotransferase 26 U/L (10-53); Anion Gap 6 meq/L (5-15); Aspartate Aminotransferase 15 U/L (15-37); Blood Urea Nitrogen 28 mg/dL (7-18); Carbon Dioxide 30.5 meq/L (21.0-32.0); Chloride 102 meq/L (98-107); Glomerular Filtration Rate 86 mL/min (>89); Glucose,Random 65 mg/dL (74-106); Sodium 138 meq/L (136-145)
[2018-06-15 08:10] LABS: Alkaline Phosphatase 59 U/L (45-117); Total Protein 5.6 g/dL (6.4-8.2)
[2018-06-15] MEDS: Senna/Docusate Sodium 8.6/50 MG Tablet PO SCH ×2 (08:47→20:56)
--- NOTE | 2018-06-15 09:03 | MB ---
cc: Robert Ascencio MD DATE: 06/15/2018 ATTENDING PHYSICIAN: Dr. Luz REASON FOR CONSULTATION: Oncology consulted to render an opinion regarding patient with multiple myeloma admitted with generalized weakness. HISTORY OF PRESENT ILLNESS: The patient is a very pleasant 82-year-old female with a history of multiple myeloma who recently developed progression of disease and just completed radiation and started on a new regimen last week, presented to the hospital with a complaint of leg weakness. She has had generalized weakness lately over the last few days. She complained of increased weakness of her legs and arm, but more prominent in her legs. She has a difficult time getting out of a sitting position. She denies any back pain. She denies any numbness of her legs. She has some tingling sensation of her hands and feet, which are chronic and more prominent on her hands. She has no bowel or urinary incontinence. She has intermittent constipation. She denies any fever or chills. She has no chest pain or palpitations. She denies any shortness of breath or cough. She has no nausea or vomiting. She denies any headache. She denies any visual changes. PAST MEDICAL HISTORY: 1. Multiple myeloma. 2. Hypertension. 3. Hyperlipidemia. 4. Glaucoma. 5. Left arm thrombophlebitis. 6. Left leg deep venous thrombosis. 7. Arthritis. PAST SURGICAL HISTORY: 1. Anal fissurectomy. 2. Appendectomy. 3. Cataract. 4. Cholecystectomy. 5. Colonoscopy. 6. Port placement. 7. Knee replacement. FAMILY HISTORY: Three siblings all are relatively healthy. She has a son also healthy. No family history of multiple myeloma. SOCIAL HISTORY: She does not drink alcohol or smoke tobacco. ALLERGIES: ACETAMINOPHEN, OXYCODONE, ROFECOXIB. CURRENT MEDICATIONS: 1. Luisa-Colace. 2. Eliquis. 3. Aspirin. 4. Calcium. 5. Citalopram. 6.. Lisinopril. REVIEW OF SYSTEMS: CONSTITUTIONAL: As above. EYES: Negative. ENT: Negative. CARDIOVASCULAR: No chest pressure or palpitation. RESPIRATORY: Denies shortness of breath or cough. GASTROINTESTINAL: No nausea, vomiting, diarrhea or abdominal pain. GENITOURINARY: No dysuria or hematuria. MUSCULOSKELETAL: As above. HEMATOLOGIC: As above. ENDOCRINE: Negative. DERMATOLOGY: Negative. PSYCHIATRIC: Negative. NEUROLOGIC: As above. PHYSICAL EXAMINATION: VITAL SIGNS: Temperature 98.5, blood pressure 121/62, O2 saturation 99% on room air. GENERAL: She is alert, oriented x 3 in no acute distress. HEENT: Atraumatic, normocephalic. Pupils are equal, round, reactive to light. Extraocular muscles are intact. No scleral icterus. Oropharynx dry mucosa. No lesion, no thrush. No mucositis. NECK: No thyromegaly. No palpable mass. LYMPHATIC: No palpable cervical, clavicular, axillary, or inguinal lymph node. CARDIOVASCULAR: Regular S1, S2. No murmur. LUNGS: Clear to auscultation anteriorly. ABDOMEN: Soft, nontender. Cannot palpate liver or spleen. EXTREMITIES: No cyanosis or clubbing. Trace ankle edema, no calf tenderness. SCDs in place. SKIN: No rash or petechiae. NEUROLOGIC: No focal deficits. Some weakness of the lower extremities. LABORATORY DATA: WBC 3.7, hemoglobin 13.3, platelet count 66, creatinine 0.63. ASSESSMENT AND PLAN: 1. Stage III, IgG lambda multiple myeloma. She initially presented with back pain, renal insufficiency, and anemia. She was treated with RVd chemotherapy in 08/2014 with poor tolerance and developed ileus. She was then treated with CyBorD regimen for 8 cycles, completed in 05/2015 with a good response. She has been on maintenance Revlimid since that time. Recently, she was found to have progression of disease with increased immunoglobulin G level up to 2600. MRI of the cervical spine showed a C4 lesion encroaching on the anterior spinal cord. She then received radiation to the cervical spine, which she just completed about 2 weeks ago. She started on daratumumab, bortezomib and Decadron last week. She had 2 doses. I had dose reduced the bortezomib to 1 mg/m2. The patient is now admitted with increased weakness, which I think is due to the side effect of the chemotherapy. She denies any back pain or focal deficit. We will hold the chemotherapy for now and observe her closely. 2. History of back pain. MRI showed diffuse degenerative changes. Recently, she found to have a C4 lesion and received radiation. At this point, she denies any back pain. She has no focal deficit. However, given her history, I recommend getting an MRI of the spine for further evaluation. 3. History of left upper extremity venous thrombosis. She also developed right lower extremity deep venous thrombosis. She is on Eliquis. 4. Hypertension, stable. 5. Hyperlipidemia. 6. Arthritis. 7. Pancytopenia due to recent chemotherapy. No need for transfusion at this time. PLAN: 1. Hold chemotherapy at this time. 2. Recommend getting an MRI of the spine. 3. Monitor labs. 4. Discussed case with Dr. Luz. Thank you, Dr. Luz, for asking me to see this patient. Robert Ascencio MD BYZeke/KIMBERLY , 08:16 AM , 09:01 AM MTDDoe
[2018-06-15 09:36] LABS: Ovalocytes 1+; Platelet Morphology Normal (Normal)
--- NOTE | 2018-06-15 10:44 | P.HPIM ---
History of Present Illness Service: Pt is 82 yo female with multiple myeloma. Pt was diagnosed in 2013 and was in remission. Recently found to have C4 mass and has been diagnosed with recurrent multiple myeloma. She follows with dr Ascencio who recently discovered a C4 mass with some cord compression. She was sent to radiation oncology for 10 radiation treatments. Over past few days pt has had more lower extremity weakness and having difficulty standing from a seated position. 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 She was brought to ED for concern over progressive myelopathy from cord compression. She has been getting chemotherapathy as well. Past Medical History Anemia Arthritis Blood Clots - Glaucoma - Hyperlipidemia - Left arm thrombophlebitis - Multiple Myeloma (Stage III IgG lambda multiple myeloma. She presented with increased back pain, - mild renal insufficiency - chronic anemia c4 mass with recent radiation rx Past Surgical History Anal fissurectomy Appendectomy Cataract removal Cholecystectomy Knee replacement Colonoscopy in 2008 Family History Ms. Lowe has 2 brothers: 2 alive. She has 1 sister who is alive. She has 1 son who is alive. Social History Ms. Lowe is . Ms. Lowe has never smoked. She has no history of drinking Primary Care Physician: No Primary Care Physician - Diagnosis (1) Multiple myeloma (2) Cervical spinal mass Inpatient Certification: I certify that the inpatient services were ordered in accordance with Medicare regulations governing the order. This includes certification that hospital inpatient services are reasonable and necessary and in the case of services not specified as inpatient-only under 42 CFR 419.22(n), that they are appropriately provided as inpatient services in accordance to with the 2-midnight benchmark under 43 CFR 412.3(e) Estimated Total Length of Stay (Days): 3 Plans for Post Hospital Care: Not yet determined Review of Systems extremity weakness and falls worse lower ext. PMFSH - History History Provided By: Patient - Medical History Medical History: Medical History (Last Reviewed 06/19/18 @ 14:39 by Hellen aMnn) Anemia Depression Glaucoma Hyperlipemia Hypertension Multiple myeloma Right leg DVT Thrombophlebitis of arm, left - Surgical History Surgical History: Surgical History (Last Reviewed 06/19/18 @ 14:39 by Hellen Mann) History of appendectomy History of cholecystectomy History of knee replacement procedure of left knee Hx of cardiac cath - Family History Family History: Family History (Last Reviewed 06/19/18 @ 14:39 by Hellen Mann) Father CVA (cerebral vascular accident) Mother Head trauma - Tobacco History Second Hand Smoke Exposure: No Smoking Status: Never smoker - Alcohol History How Often Do You Have a Drink Containing Alcohol: Never - Substance Use History Substance History: No History of Abuse - Immunization History Tetanus Immunization: Unsure Medications and Allergies Active Medications: Active Medications Hydrocodone Bitart/Acetaminophen ([place] 7.5/325) 1 tab PO Q6H PRN PRN Reason: pain 3-10 Al Hydroxide/Mg Hydroxide (Milk Of Magnesia Liq) 30 ml PO Q12H PRN PRN Reason: Mild Constipation Apixaban (Eliquis) 5 mg PO Q12HR MAT Bisacodyl (Dulcolax Supp) 10 mg RECTAL DAILY PRN PRN Reason: SEVERE CONSITIPATION Enalapril Maleate (Vasotec) 5 mg PO Q12HR MAT Escitalopram Oxalate (Lexapro) 5 mg PO DAILY MAT Lactulose (Lactulose Liq) 30 ml PO DAILY PRN PRN Reason: SEVERE CONSITIPATION Ondansetron HCl (Zofran Odt) 4 mg PO Q6H PRN PRN Reason: NAUSEA OR VOMITING Potassium Chloride (Klor-Con 10) 10 meq PO DAILY [facility] Senna/Docusate Sodium (Luisa-Colace) 1 tab PO BID [facility] Last Admin: 06/15/18 08:47 Dose: 1 tab Sennosides (Senokot) 17.2 mg PO Q12H PRN PRN Reason: Moderate Constipation Sodium Chloride (Ns Flush) 2 ml IV.FLUSH PRN PRN PRN Reason: FLUSH AFTER USING IV ACCESS Temazepam (Restoril) 15 mg PO HS PRN PRN Reason: INSOMNIA Allergies Allergy/AdvReac Type Severity Reaction Status Date / Time oxycodone Allergy Severe Rash Verified 06/14/18 17:01 rofecoxib Allergy Severe ITCHING Verified 06/14/18 17:01 Home Medications Medication Instructions Recorded Confirmed Type apixaban [Eliquis] 5 mg PO BID 06/15/18 06/18/18 History enalapril maleate 5 mg PO BID 06/15/18 06/18/18 History escitalopram oxalate 5 mg PO DAILY 06/15/18 06/18/18 History potassium chloride [K-Tab] 10 mg PO DAILY 06/15/18 06/18/18 History Exam Vital signs: Vital Signs 06/14/18 15:50 06/14/18 16:47 06/14/18 19:11 Temperature 97.6 F 98.7 F Pulse Rate 50 L 58 L Respiratory Rate 18 20 Blood Pressure 139/71 119/73 Pulse Oximetry 100 100 06/14/18 20:20 06/15/18 00:00 06/15/18 01:03 Temperature 97.6 F Pulse Rate 63 69 72 Respiratory Rate 18 18 Blood Pressure 125/67 124/77 Pulse Oximetry 97 98 06/15/18 04:00 06/15/18 04:03 06/15/18 07:56 Temperature 97.6 F 98.5 F Pulse Rate 66 56 L 56 L Respiratory Rate 16 18 Blood Pressure 118/73 121/62 Pulse Oximetry 98 99 Intake & Output 06/14/18 06/15/18 06/15/18 18:59 06:59 18:59 Intake Total 120 / 120 Output Total 600 / 600 Balance -480 / -480 Weight 140 kg 63.3 kg Intake: Oral 120 / 120 Output: Urine 600 / 600 Other: # Voids 1 Date of Last Bowel Movement 06/15/18 # Bowel Movements 1 Weight On Admission 63.3 kg heart reg lung cta abd s/nt ext no edema able to flex/extend at hip/knee/ankles while lying in bed. currently no significant rental car porter strength weakness Results - Labs CBC & Chem 7: 06/17/18 06:29 06/15/18 07:30 Labs: Short CBC 06/14/18 06/15/18 Range/Units 16:50 07:30 WBC 3.7 L 1.8 L D (4.0-11.0) th/mm3 Hgb 13.3 14.0 (11.6-15.3) gm/dL Hct 39.7 41.8 (35.0-46.0) % Plt Count 66 L D 53 L (150-450) th/mm3 BMP 06/14/18 06/15/18 16:50 07:30 Sodium 139 138 Potassium 4.3 4.0 Chloride 104 102 Carbon Dioxide 29.8 30.5 BUN 31 H 28 H Creatinine 0.63 0.66 Calcium 7.6 L 8.0 L Cardiac Enzymes 06/14/18 Range/Units 16:50 Total Creatine Kinase 45 (26-192) U/L Troponin I Less than 0.02 L (0.02-0.05) ng/mL Liver Function 06/15/18 Range/Units 07:30 Total Bilirubin 1.4 H (0.2-1.0) mg/dL AST 15 (15-37) U/L ALT 26 (10-53) U/L Alkaline Phosphatase 59 (45-117) U/L Albumin 2.0 L (3.4-5.0) g/dL Urine 06/14/18 Range/Units 18:07 Urine Color Yellow (Yellw/Straw) Urine Clarity Clear (Clear) Urine pH 6.0 (5.0-8.5) Ur Specific [place] 1.018 (1.002-1.035) Urine Protein Negative (Neg-Trace) mg/dL Urine Glucose (UA) Negative (Negative) mg/dL - Imaging Impressions Chest X-Ray 06/14/18 16:21 CONCLUSION: Remote right rib fractures. Minimal basilar atelectasis or scarring. Head CT 06/14/18 16:21 CONCLUSION: 1. No acute intracranial abnormality. . Venous Doppler Study 06/14/18 18:42 CONCLUSION: 1. The study is negative for bilateral lower extremity deep venous thrombosis. Caprini VTE Risk Assessment Caprini VTE Risk Assessment: Moderate/High Risk (score >= 2) Caprini Risk Assessment Model: Point Value = 1 Point Value = 2 Point Value = 3 Point Value = 5 Age 41-60 Minor surgery BMI > 25 kg/m2 Swollen legs Varicose veins or History of unexplained or recurrent spontaneous Oral contraceptives or hormone replacement Sepsis (< 1 month) Serious lung disease, including pneumonia (< 1 month) Abnormal pulmonary function Acute myocardial infarction Congestive heart failure (< 1 month) History of inflammatory bowel disease Medical patient at bed rest Age 61-74 Arthroscopic surgery Major open surgery (> 45 min) Laparoscopic surgery (> 45 min) Malignancy Confined to bed (> 72 hours) Immobilizing plaster cast Central venous access Age >= 75 History of VTE Family history of VTE Factor V Leiden Prothrombin [id number] Lupus anticoagulant Anticardiolipin antibodies Elevated serum homocysteine Heparin-induced thrombocytopenia Other congenital or acquired thrombophilia Stroke (< 1 month) Elective arthroplasty Hip, pelvis, or leg fracture Acute spinal cord injury (< 1 month) Prophylaxis Regimen: Total Risk Factor Score Risk Level Prophylaxis Regimen 0-1 Low Early ambulation 2 Moderate Order ONE of the following: *Sequential Compression Device (SCD) *Heparin 5000 units SQ BID 3-4 Higher Order ONE of the following medications: *Heparin 5000 units SQ TID *Enoxaparin/Lovenox 40 mg SQ daily (WT < 150 kg, CrCl > 30 mL/min) *Enoxaparin/Lovenox 30 mg SQ daily (WT < 150 kg, CrCl > 10-29 mL/min) *Enoxaparin/Lovenox 30 mg SQ BID (WT < 150 kg, CrCl > 30 mL/min) AND/OR *Sequential Compression Device (SCD) 5 or more Highest Order ONE of the following medications: *Heparin 5000 units SQ TID (Preferred with Epidurals) *Enoxaparin/Lovenox 40 mg SQ daily (WT < 150 kg, CrCl > 30 mL/min) *Enoxaparin/Lovenox 30 mg SQ daily (WT < 150 kg, CrCl > 10-29 mL/min) *Enoxaparin/Lovenox 30 mg SQ BID (WT < 150 kg, CrCl > 30 mL/min) AND *Sequential Compression Device (SCD) Assessment and Plan - Assessment (1) Multiple myeloma Code(s): C90.00 - Multiple myeloma not having achieved remission Status: Chronic Plan: 1. Relapsed Multiple myeloma 2. c4 mass with some cord compression admitted with worsening lower ext weakness/falls and some upper ext rental car porter weakness per family She has peripheral neuropathy as well. Pt is s/p 10 radiation rx's and currently undergoing chemo with Dr Ascencio She has leukopenia and thrombocytopenia from her chemo Dr Ascencio thinks her weakness is related to the chemo I discussed the cord compression and weakness with NSG Dr Villasenor and we decided to place her on decadron and he will evaluate her and review MRI. . (2) Cervical spinal mass Code(s): G95.9 - Disease of spinal cord, unspecified Status: Acute H&P: Quality - VTE Deep Vein Thrombosis/Pulmonary Embolism Present on Admission: No (1) Multiple myeloma Qualifiers: Multiple myeloma remission status: not in remission Qualified Code(s): C90.00 - Multiple myeloma not having achieved remission
--- NOTE | 2018-06-15 11:45 | MR ---
EXAM DATE: 06/15/2018 11:20 AM EDT AGE/SEX: 82 years / Female INDICATIONS: . Mass cervical spine. Increasing weakness. CLINICAL DATA: This is the patient's subsequent encounter. Patient reports that signs and symptoms h ave been present for 3 days and indicates a pain score of 3/10. MEDICAL/SURGICAL HISTORY: Hypertension. Anemia. Multiple myeloma. Appendectomy. Cholecystect marilyn. Total knee replacement, left. COMPARISON: [facility], MR CERVICAL SPINE W AND W/O CONTRAST, 05/12/2018. . TECHNIQUE: Multiplanar, multisequence MRI examination of the cervical spine was performed without an d with 6 ml Gadavist (gadobutrol) contrast as a single exam dose. FINDINGS: Vertebrae: The vertebral bodies remain stable in appearance with moderate compression fracture defor mity again noted involving the C4 vertebral body and mild deformity of the C5 and C6 vertebral bodies . Discs: There is diffuse disc desiccation and mild disc space narrowing. Anterior extradural defects a re again noted on the sagittal images at the C2-3 through C6-7 levels. Alignment: Normal. Cord: Normal configuration and signal. Post Fossa: The cerebellar tonsils are normal in position. Post Contrast: Enhancing mass is again noted in the left extra axial region at the C4 level. On the sagittal images appears slightly less prominent and measures approximately 12 x 8 mm in diameter comp ared to 13 x 9 mm on the prior study. C2-C3: A small posterior central protrusion is again identified without significant change. This alysha sures approximately 6 mm across the base and 3 mm in AP diameter with mild mass effect on the anterio r thecal sac. This comes in close contact with the anterior cord which may be minimally flattened wit h no abnormal signal. The neural foramina are patent. C3-C4: Broad-based mild protrusion versus bulge is again noted which comes in contact with the anter ior cord with apparent slight flattening. There is minimal residual CSF surrounding the cord or. The neural foramina remain patent appearance.. C4-C5: Mild annular disc bulge again noted with mild mass effect on the anterior thecal sac. The lef t extra axial mass is again visualized however not as well on the postcontrast images as compared to the prior study. On the axial T2-weighted images this does not appear significantly changed and measu res approximately 9 mm in greatest AP diameter by 7 mm in transverse diameter. There is mass effect o n the left side of the cord with central canal stenosis again noted. There is no residual CSF surroun ding the majority of the cord. There is mild narrowing at the origin of the left neural foramina. The right remains patent. C5-C6: Broad-based disc osteophyte complex is again noted without significant change. This comes in contact with the anterior cord with mild flattening and no abnormal signal. Mild narrowing of the felicity ral foramina is again noted. This is unchanged in appearance. C6-C7: Posterior disc osteophyte complex which comes in contact with the anterior cord with no mass effect. There is mild narrowing of the neural foramina. C7-T1: No epidural impressions seen. CONCLUSION: 1. No significant change in the extra axial enhancing mass at the C4-5 level with mass effect on the cord and central canal stenosis. 2. Central canal stenosis again noted at C5-6 area in the area to broad-based disc osteophyte comple x with mild flattening of the cord. There is no abnormal signal. This does not appear significantly c hanged. 3. Broad-based protrusion versus bulge at C3-4 with mild flattening the anterior cord and no abnorma l signal without change 4. Posterior disc bulge at C6-7 with no mass effect on the cord. 5. Stable appearance of the vertebral bodies with chronic compression fracture deformity of C4. Electronically signed by: Burak Murguia MD 06/15/2018 11:44 AM EDT
[2018-06-15] MEDS ORDERED: Gadobutrol PF 7.5 MMOL/7.5 ML Vial (for RAD) IV.SIG ONE (12:10)
[2018-06-15] MEDS: Escitalopram 10 MG Tablet PO SCH (12:11)
[2018-06-15] MEDS ORDERED: Benzocaine/Menthol 15 MG/3.6 MG SF Lozenge BUCCAL PRN (14:57)
[2018-06-15] MEDS ORDERED: Dexamethasone Inj 20 MG/5 ML Vial IV.PUSH ONE (15:09)
--- NOTE | 2018-06-15 18:01 | P.CONNS ---
History of Present Illness Service: neurosurg Consult date: 06/15/18 Requesting Physician: Mg Luz Reason for Consult: spinal cord compression Primary Care Provider: No Primary Care Physician Chief Complaint: weakness in lower extremities History of Present Illness: This is a 82 y/o female who has recently been diagnoses with a cervical spine mass. 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 She reports generalized weakness. She rreports mild pain. The weakness is affectintg her upper and lower extremities. She states she is on chemotherapy pills that she got about last but denies having a Port or IV chemo yet. No incontinence of stool or urine. Her lower extremities are weaker than her upper extremities. She has great difficulty ambulating. She is a history of multiple myeloma and is followed by oncology services. She states she has been using a walker for the past 3 years due to the leg weakness mainly affecting the thighs and some low back pain. She denies any new symptomatology and states it is all chronic. Denies any burning tingling in her feet. Denies any neck pain or any radicular symptomatology emanating either from her neck or her lower back. Denies any vision loss diplopia or difficulty with her speech MRI C spine was obtained. Neurosurgery consultation was requested Review of Systems All other systems reviewed negative except as stated in HPI PMFSH - History History Provided By: Patient - Medical History Medical History: Medical History (Last Reviewed 06/16/18 @ 17:26 by Brent Villasenor MD) Anemia Glaucoma Hyperlipemia Hypertension Right leg DVT Thrombophlebitis of arm, left Multiple myeloma - Surgical History Surgical History: Surgical History (Last Reviewed 06/16/18 @ 17:26 by Brent Villasenor MD) History of appendectomy History of cholecystectomy History of knee replacement procedure of left knee Hx of cardiac cath - Tobacco History Second Hand Smoke Exposure: No Tobacco Use In Past 30 Days: No Smoking Status: Never smoker - Alcohol History How Often Do You Have a Drink Containing Alcohol: Never - Substance Use History Substance History: No History of Abuse - Immunization History Tetanus Immunization: Unsure Medications and Allergies Active Medications: Active Medications Hydrocodone Bitart/Acetaminophen ([place] 7.5/325) 1 tab PO Q6H PRN PRN Reason: pain 3-10 Last Admin: 06/15/18 12:11 Dose: 1 tab Al Hydroxide/Mg Hydroxide (Milk Of Magnesia Liq) 30 ml PO Q12H PRN PRN Reason: Mild Constipation Apixaban (Eliquis) 5 mg PO Q12HR [facility] Last Admin: 06/15/18 12:11 Dose: 5 mg Bisacodyl (Dulcolax Supp) 10 mg RECTAL DAILY PRN PRN Reason: SEVERE CONSITIPATION Dexamethasone Sodium Phosphate (Decadron Inj) 4 mg IV.PUSH Q6HR [facility] Enalapril Maleate (Vasotec) 5 mg PO Q12HR [facility] Last Admin: 06/15/18 12:12 Dose: 5 mg Escitalopram Oxalate (Lexapro) 5 mg PO DAILY [facility] Last Admin: 06/15/18 12:11 Dose: 5 mg Lactulose (Lactulose Liq) 30 ml PO DAILY PRN PRN Reason: SEVERE CONSITIPATION Non-Formulary Drug: Benzocaine/Menthol 15 Mg/3.6 Mg Lozenge Sugar Free(Cepacol Sugar-Free) 1 each BUCCAL Q2H PRN PRN Reason: SORE THROAT Ondansetron HCl (Zofran Odt) 4 mg PO Q6H PRN PRN Reason: NAUSEA OR VOMITING Potassium Chloride (Klor-Con 10) 10 meq PO DAILY [facility] Last Admin: 06/15/18 12:11 Dose: 10 meq Senna/Docusate Sodium (Luisa-Colace) 1 tab PO BID [facility] Last Admin: 06/15/18 08:47 Dose: 1 tab Sennosides (Senokot) 17.2 mg PO Q12H PRN PRN Reason: Moderate Constipation Sodium Chloride (Ns Flush) 2 ml IV.FLUSH PRN PRN PRN Reason: FLUSH AFTER USING IV ACCESS Temazepam (Restoril) 15 mg PO HS PRN PRN Reason: INSOMNIA Allergies Allergy/AdvReac Type Severity Reaction Status Date / Time acetaminophen Allergy Severe Rash Verified 06/14/18 17:01 oxycodone Allergy Severe Rash Verified 06/14/18 17:01 rofecoxib Allergy Severe ITCHING Verified 06/14/18 17:01 Home Medications Medication Instructions Recorded Confirmed Type Revlimid 10 mg PO DAILY 06/15/18 06/15/18 History apixaban [Eliquis] 5 mg PO BID 06/15/18 06/15/18 History aspirin 06/15/18 History enalapril maleate 5 mg PO BID 06/15/18 06/15/18 History escitalopram oxalate 5 mg PO DAILY 06/15/18 06/15/18 History hydrocodone-acetaminophen 1 tab PO Q6H PRN 06/15/18 06/15/18 History potassium chloride [K-Tab] 10 mg PO DAILY 06/15/18 06/15/18 History Exam Vital signs: Vital Signs 06/14/18 19:11 06/14/18 20:20 06/15/18 00:00 Temperature 97.6 F Pulse Rate 63 69 Respiratory Rate 18 18 Blood Pressure 125/67 124/77 Pulse Oximetry 100 97 98 06/15/18 01:03 06/15/18 04:00 06/15/18 04:03 Temperature 97.6 F Pulse Rate 72 66 56 L Respiratory Rate 16 Blood Pressure 118/73 Pulse Oximetry 98 06/15/18 07:56 06/15/18 09:00 06/15/18 12:04 Temperature 98.5 F 97.5 F L Pulse Rate 56 L 69 92 H Respiratory Rate 18 20 Blood Pressure 121/62 109/74 Pulse Oximetry 99 98 06/15/18 14:25 06/15/18 17:03 Temperature 98.8 F Pulse Rate 69 79 Respiratory Rate 18 Blood Pressure 93/51 L Pulse Oximetry 95 Intake & Output 06/14/18 06/15/18 06/15/18 18:59 06:59 18:59 Intake Total 120 / 120 700 / 700 Output Total 600 / 600 700 / 700 Balance -480 / -480 0 / 0 Weight 140 kg 63.3 kg Intake: Oral 120 / 120 700 / 700 Output: Urine 600 / 600 700 / 700 Other: # Voids 1 Date of Last Bowel Movement 06/15/18 # Bowel Movements 1 2 Weight On Admission 63.3 kg Narrative: The patient is alert, awake. Comfortable, in no acute distress. Speech is fluent. Cranial nerve examination: pupils to be equal, round and reactive to light. Extra-ocular movements are intact. Facial motor and sensory function are normal and symmetrical. Gross hearing decreased bilaterally. Sternocleidomastoid and trapezius muscles are symmetrical. Other cranial nerves are intact. Neck is soft and supple with a decreased range of motion without much pain. Muscle strength: she is able to raise upper extremities against gravity without difficulty, her strenght is 4/5 in both upper extremities, able raise lower extremity gravity with strenght 3/5 in her lower extremities Sensory examination is intact to light touch and pin prick in both upper extremities, slightly reduced light touch distal toes but grossly pinprick in her lower extremities, proprioception is normal. Deep tendon reflexes are symmetrical in both upper and lower extremities. There is a bilateral plantar flexion response. No clonus Cerebellar examination is unremarkable, without deficits. Lungs are clear Heart regular rhythm is regular rate Skin warm and dry Results - Laboratory Findings CBC and BMP: 06/16/18 04:38 06/15/18 07:30 Abnormal lab findings: Abnormal Labs 06/14/18 06/14/18 06/14/18 16:50 16:50 18:07 WBC 3.7 L RDW 18.7 H Plt Count 66 L D Neut % (Auto) 92.2 H Lymph % (Auto) 2.5 L Neut # (Auto) Lymph # (Auto) 0.1 L Platelet Estimate Ovalocytes BUN 31 H Estimated GFR Random Glucose Calcium 7.6 L Total Bilirubin Troponin I Less than 0.02 L Total Protein Albumin Urine Occult Blood Small H Urine Urobilinogen 2.0 H Urine Mucus Few H 06/15/18 06/15/18 07:30 07:30 WBC 1.8 L D RDW 18.7 H Plt Count 53 L Neut % (Auto) 94.3 H Lymph % (Auto) 2.6 L Neut # (Auto) 1.7 L Lymph # (Auto) 0.0 L Platelet Estimate Low L Ovalocytes 1+ H BUN 28 H Estimated GFR 86 L Random Glucose 65 L Calcium 8.0 L Total Bilirubin 1.4 H Troponin I Total Protein 5.6 L Albumin 2.0 L Urine Occult Blood Urine Urobilinogen Urine Mucus Assessment and Plan - Plan I reviewed her clinical and radiological studies, including Chest X-Ray 06/14/18 16:21 CONCLUSION: Remote right rib fractures. Minimal basilar atelectasis or scarring. Head CT 06/14/18 16:21 CONCLUSION: 1. No acute intracranial abnormality. Venous Doppler Study 06/14/18 18:42 CONCLUSION: 1. The study is negative for bilateral lower extremity deep venous thrombosis. Cervical Spine MRI 06/15/18 09:06 CONCLUSION: 1. No significant change in the extra axial enhancing mass at the C4-5 level with mass effect on the cord and central canal stenosis. 2. Central canal stenosis again noted at C5-6 area in the area to broad-based disc osteophyte complex with mild flattening of the cord. There is no abnormal signal. This does not appear significantly changed. 3. Broad-based protrusion versus bulge at C3-4 with mild flattening the anterior cord and no abnormal signal without change 4. Posterior disc bulge at C6-7 with no mass effect on the cord. 5. Stable appearance of the vertebral bodies with chronic compression fracture deformity of C4. Neuro: Neuro checks every 4 hours. It is very dificult to determine the excact nature of her weakness and difficulty ambulating, likely to be multifactorial. Jeanine has cord compression, she is chronically debilitated and recently has completed chemotherapy, all of which play a role. IO discussed with her the alternatives of treatment I recommend neurology consultation for a second opinion. aggressive pulmonary toilette, nasotracheal suction, and breathing treatments with nebulizers. Daily PT and OT Renal: Continue to monitor closely urine output, BUN and creatinine Endocrine: Continue to Monitor serial Acu checks and SSI as needed in detail ID continue to monitor for signs of infection Continue Protonix for stress ulcer prophylaxis Continue Ilya hose and SCD's for DVT prophylaxis Caprini VTE Risk Assessment Caprini Risk Assessment Model: Point Value = 1 Point Value = 2 Point Value = 3 Point Value = 5 Age 41-60 Minor surgery BMI > 25 kg/m2 Swollen legs Varicose veins or History of unexplained or recurrent spontaneous Oral contraceptives or hormone replacement Sepsis (< 1 month) Serious lung disease, including pneumonia (< 1 month) Abnormal pulmonary function Acute myocardial infarction Congestive heart failure (< 1 month) History of inflammatory bowel disease Medical patient at bed rest Age 61-74 Arthroscopic surgery Major open surgery (> 45 min) Laparoscopic surgery (> 45 min) Malignancy Confined to bed (> 72 hours) Immobilizing plaster cast Central venous access Age >= 75 History of VTE Family history of VTE Factor V Leiden Prothrombin [id number] Lupus anticoagulant Anticardiolipin antibodies Elevated serum homocysteine Heparin-induced thrombocytopenia Other congenital or acquired thrombophilia Stroke (< 1 month) Elective arthroplasty Hip, pelvis, or leg fracture Acute spinal cord injury (< 1 month) Prophylaxis Regimen: Total Risk Factor Score Risk Level Prophylaxis Regimen 0-1 Low Early ambulation 2 Moderate Order ONE of the following: *Sequential Compression Device (SCD) *Heparin 5000 units SQ BID 3-4 Higher Order ONE of the following medications: *Heparin 5000 units SQ TID *Enoxaparin/Lovenox 40 mg SQ daily (WT < 150 kg, CrCl > 30 mL/min) *Enoxaparin/Lovenox 30 mg SQ daily (WT < 150 kg, CrCl > 10-29 mL/min) *Enoxaparin/Lovenox 30 mg SQ BID (WT < 150 kg, CrCl > 30 mL/min) AND/OR *Sequential Compression Device (SCD) 5 or more Highest Order ONE of the following medications: *Heparin 5000 units SQ TID (Preferred with Epidurals) *Enoxaparin/Lovenox 40 mg SQ daily (WT < 150 kg, CrCl > 30 mL/min) *Enoxaparin/Lovenox 30 mg SQ daily (WT < 150 kg, CrCl > 10-29 mL/min) *Enoxaparin/Lovenox 30 mg SQ BID (WT < 150 kg, CrCl > 30 mL/min) AND *Sequential Compression Device (SCD) Further recommendations will be provided depending on the patient's clinical evaluation and follow up studies.
[2018-06-15] MEDS: [UNRECOGNIZED DRUG - OTHER] BUCCAL PRN (21:02)
[2018-06-15] MEDS: MENTHOL BUCCAL PRN (21:02)
[2018-06-15] MEDS: BENZOCAINE BUCCAL PRN (21:02)
[2018-06-16 06:08] LABS: Baso % (Auto) 0.1 % (0.0-2.0); Hematocrit 39.5 % (35.0-46.0); Hemoglobin 13.2 gm/dL (11.6-15.3); Lymph # (Auto) 0.1 th/mm3 (1.0-4.8); Lymph % (Auto) 3.7 % (9.0-44.0); Mean Corpuscular HGB Conc 33.4 % (32.0-36.0); Mean Corpuscular Hemoglobin 30.8 pg (27.0-34.0); Mean Platelet Volume 9.1 fL (7.0-11.0); Mono % (Auto) 2.5 % (0.0-8.0); Neut # (Auto) 1.6 th/mm3 (1.8-7.7); Neut % (Auto) 93.7 % (16.0-70.0); Platelet Count 53 th/mm3 (150-450); Red Blood Count 4.29 mil/mm3 (4.00-5.30); Red Cell Distribution Width 18.9 % (11.6-17.2); White Blood Count 1.7 th/mm3 (4.0-11.0)
--- NOTE | 2018-06-16 07:59 | P.PNONC ---
Subjective Interval history: Feeling little stronger today. She denies any neck pain or back pain. She denies any bowel or urinary incontinence. She has no chest pain or shortness of breath. She still has paresthesia of hands and feet. Objective Vital Signs/Intake & Output: Vital Signs 06/15/18 07:56 06/15/18 09:00 06/15/18 12:04 Temperature 98.5 F 97.5 F L Pulse Rate 56 L 69 92 H Respiratory Rate 18 20 Blood Pressure 121/62 109/74 Pulse Oximetry 99 98 06/15/18 14:25 06/15/18 17:03 06/15/18 20:00 Temperature 98.8 F 98.4 F Pulse Rate 69 79 83 Respiratory Rate 18 16 Blood Pressure 93/51 L 103/63 Pulse Oximetry 95 97 06/16/18 00:00 06/16/18 00:14 06/16/18 04:00 Temperature 98.2 F Pulse Rate 66 67 61 Respiratory Rate 17 Blood Pressure 118/70 Pulse Oximetry 97 06/16/18 04:42 06/16/18 07:00 Temperature 98.2 F Pulse Rate 57 L 56 L Respiratory Rate 17 Blood Pressure 116/75 Pulse Oximetry 97 Intake & Output 06/15/18 06/16/18 06/16/18 18:59 06:59 18:59 Intake Total 1440 / 1440 Output Total 1450 / 1450 600 / 600 Balance -10 / -10 -600 / -600 Weight 63 kg Intake: Oral 1440 / 1440 Output: Urine 1450 / 1450 600 / 600 Other: Date of Last Bowel Movement 06/15/18 # Bowel Movements 2 Result Diagrams: 06/16/18 04:38 06/15/18 07:30 Laboratory Results: Laboratory Results - last 24 hr 06/15/18 06/15/18 06/16/18 07:30 07:30 04:38 WBC 1.7 L RBC 4.29 Hgb 13.2 Hct 39.5 MCV 92.0 MCH 30.8 MCHC 33.4 RDW 18.9 H Plt Count 53 L MPV 9.1 Prelim Diff (Auto) Slide review pending Neut % (Auto) 93.7 H Lymph % (Auto) 3.7 L [place] % (Auto) 2.5 Eos % (Auto) 0.0 Baso % (Auto) 0.1 Neut # (Auto) 1.6 L Lymph # (Auto) 0.1 L Bee # (Auto) 0.0 Eos # (Auto) 0.0 Baso # (Auto) 0.0 WBC Differential . Diff Scan Auto diff confirmed Differential Comment . Platelet Estimate Low L Platelet Morphology Normal Ovalocytes 1+ H Sodium 138 Potassium 4.0 Chloride 102 Carbon Dioxide 30.5 Anion Gap 6 BUN 28 H Creatinine 0.66 Estimated GFR 86 L Random Glucose 65 L Calcium 8.0 L Total Bilirubin 1.4 H AST 15 ALT 26 Alkaline Phosphatase 59 Total Protein 5.6 L Albumin 2.0 L Imaging Studies: Impressions Cervical Spine MRI 06/15/18 09:06 CONCLUSION: 1. No significant change in the extra axial enhancing mass at the C4-5 level with mass effect on the cord and central canal stenosis. 2. Central canal stenosis again noted at C5-6 area in the area to broad-based disc osteophyte complex with mild flattening of the cord. There is no abnormal signal. This does not appear significantly changed. 3. Broad-based protrusion versus bulge at C3-4 with mild flattening the anterior cord and no abnormal signal without change 4. Posterior disc bulge at C6-7 with no mass effect on the cord. 5. Stable appearance of the vertebral bodies with chronic compression fracture deformity of C4. Medications: Active Medications Generic Name Dose Route Start Last Admin Trade Name Freq PRN Reason Stop Dose Admin Hydrocodone Bitart/Acetaminophen 1 tab 06/15/18 09:09 06/15/18 18:38 [place] 7.5/325 PO 1 tab Q6H PRN Administration pain 3-10 Apixaban 5 mg 06/15/18 10:00 06/15/18 20:56 Eliquis PO 5 mg Q12HR MAT Administration Dexamethasone Sodium Phosphate 4 mg 06/16/18 00:00 06/16/18 06:42 Decadron Inj IV.PUSH 4 mg Q6HR MAT Administration Enalapril Maleate 5 mg 06/15/18 10:00 06/16/18 00:18 Vasotec PO Not Given Q12HR MAT Escitalopram Oxalate 5 mg 06/15/18 10:00 06/15/18 12:11 Lexapro PO 5 mg DAILY MAT Administration Non-Formulary Dru each 06/15/18 16:15 06/15/18 21:02 Benzocaine/Menthol BUCCAL 1 each 15 Mg/3.6 Mg Lozenge Q2H PRN Administration Sugar Free(Cepacol SORE THROAT Sugar-Free) Potassium Chloride 10 meq 06/15/18 10:00 06/15/18 12:11 Klor-Con 10 PO 10 meq DAILY MAT Administration Senna/Docusate Sodium 1 tab 06/14/18 21:00 06/15/18 20:56 Luisa-Colace PO 1 tab BID MAT Administration Objective Remarks: GENERAL: Well-nourished, well-developed patient. No acute distress. Appears stronger. SKIN: Warm and dry. HEAD: Normocephalic. EYES: No scleral icterus. No injection or drainage. NECK: Supple, trachea midline. No JVD or lymphadenopathy. LYMPHATIC: No adenopathy. CARDIOVASCULAR: Regular rate and rhythm without murmurs. RESPIRATORY: Breath sounds equal bilaterally. No accessory muscle use. GASTROINTESTINAL: Abdomen soft, non-tender, nondistended. EXTREMITIES: No cyanosis, 1+ bilateral lower extremity edema. MUSCULOSKELETAL: Adequate muscle tone. NEUROLOGICAL: No obvious focal deficit. Awake, alert, and oriented x3. PSYCHIATRIC: Appropriate mood and affect; insight and judgment normal. Assessment/Plan (1) Multiple myeloma not having achieved remission Code(s): C90.00 - Multiple myeloma not having achieved remission Status: Acute (2) Cervical spinal mass Code(s): G95.9 - Disease of spinal cord, unspecified Status: Acute - Plan 1. Stage III, IgG lambda multiple myeloma. She initially presented with back pain, renal insufficiency, and anemia. She was treated with RVd chemotherapy in 08/2014 with poor tolerance and developed ileus. She was then treated with CyBorD regimen for 8 cycles, completed in 05/2015 with a good response. She has been on maintenance Revlimid since that time. Recently, she was found to have progression of disease with increased immunoglobulin G level up to 2600. MRI of the cervical spine showed a C4 lesion encroaching on the anterior spinal cord. She then received radiation to the cervical spine, which she just completed about 2 weeks ago. She started on daratumumab, bortezomib and Decadron last week. She had 2 doses. I had dose reduced the bortezomib to 1 mg/m2. The patient is now admitted with increased weakness, which I think is due to the side effect of the chemotherapy. She denies any back pain or focal deficit. We will hold the chemotherapy for now and observe her closely. June 16, 2018: Continue to hold chemotherapy. 2. History of back pain. MRI showed diffuse degenerative changes. Recently, she found to have a C4 lesion and received radiation. At this point, she denies any back pain. She has no focal deficit. However, given her history, I recommend getting an MRI of the spine for further evaluation. June 16, 2018: Cervical spine MRI showed stable C4 lesion with mild mass-effect. Patient denies any neck pain or back pain. She has no focal neurologic deficit. Neurosurgery has been consulted for further evaluation. The C4 lesion has been radiated, There is no evidence of progression of the lesion. 3. History of left upper extremity venous thrombosis. She also developed right lower extremity deep venous thrombosis. She is on Eliquis. 4. Pancytopenia due to recent chemotherapy. No need for transfusion at this time. June 16, 2018: CBC is stable, and patient is not neutropenic. PLAN: 1. Hold chemotherapy at this time. 2. Await neurosurgical evaluation 3. Monitor labs. 4. Discussed case with Dr. Luz.
[2018-06-16 08:05] LABS: Lymphocytes 4 % (9-44); Monocytes 1 % (0-8)
[2018-06-16 08:06] LABS: Ovalocytes 1+; Platelet Morphology Normal (Normal)
[2018-06-16] MEDS: Senna/Docusate Sodium 8.6/50 MG Tablet PO SCH ×2 (09:11→22:19)
[2018-06-16] MEDS: Escitalopram 10 MG Tablet PO SCH (09:12)
--- NOTE | 2018-06-16 10:06 | P.PNIM ---
Subjective Interval history: feels a little stronger. Physical Exam Vital signs: Vital Signs 06/15/18 12:04 06/15/18 14:25 06/15/18 17:03 Temperature 97.5 F L 98.8 F Pulse Rate 92 H 69 79 Respiratory Rate 20 18 Blood Pressure 109/74 93/51 L Pulse Oximetry 98 95 06/15/18 20:00 06/16/18 00:00 06/16/18 00:14 Temperature 98.4 F 98.2 F Pulse Rate 83 66 67 Respiratory Rate 16 17 Blood Pressure 103/63 118/70 Pulse Oximetry 97 97 06/16/18 04:00 06/16/18 04:42 06/16/18 07:00 Temperature 98.2 F Pulse Rate 61 57 L 56 L Respiratory Rate 17 Blood Pressure 116/75 Pulse Oximetry 97 06/16/18 08:06 Temperature 97.8 F Pulse Rate 57 L Respiratory Rate Blood Pressure 123/77 Pulse Oximetry 97 Intake & Output 06/15/18 06/16/18 06/16/18 18:59 06:59 18:59 Intake Total 1440 / 1440 Output Total 1450 / 1450 600 / 600 Balance -10 / -10 -600 / -600 Weight 63 kg Intake: Oral 1440 / 1440 Output: Urine 1450 / 1450 600 / 600 Other: Date of Last Bowel Movement 06/15/18 06/15/18 # Bowel Movements 2 heart reg lung cta abd s/nt ext no edema Results - Labs CBC & Chem 7: 06/16/18 04:38 06/15/18 07:30 Laboratory Results - last 24 hr 06/16/18 04:38 WBC 1.7 L RBC 4.29 Hgb 13.2 Hct 39.5 MCV 92.0 MCH 30.8 MCHC 33.4 RDW 18.9 H Plt Count 53 L MPV 9.1 Prelim Diff (Auto) Slide review pending Neut % (Auto) 93.7 H Lymph % (Auto) 3.7 L [place] % (Auto) 2.5 Eos % (Auto) 0.0 Baso % (Auto) 0.1 Neut # (Auto) 1.6 L Lymph # (Auto) 0.1 L [place] # (Auto) 0.0 Eos # (Auto) 0.0 Baso # (Auto) 0.0 WBC Differential Manual diff final Seg Neuts % (Manual) 91 H Band Neuts % (Manual) 4 Lymphocytes % (Manual) 4 L Monocytes % (Manual) 1 Abs Neuts (Manual) 1.6 L Differential Comment . Platelet Estimate Low L Platelet Morphology Normal Ovalocytes 1+ H - Imaging Impressions Cervical Spine MRI 06/15/18 09:06 CONCLUSION: 1. No significant change in the extra axial enhancing mass at the C4-5 level with mass effect on the cord and central canal stenosis. 2. Central canal stenosis again noted at C5-6 area in the area to broad-based disc osteophyte complex with mild flattening of the cord. There is no abnormal signal. This does not appear significantly changed. 3. Broad-based protrusion versus bulge at C3-4 with mild flattening the anterior cord and no abnormal signal without change 4. Posterior disc bulge at C6-7 with no mass effect on the cord. 5. Stable appearance of the vertebral bodies with chronic compression fracture deformity of C4. Assessment and Plan - Assessment (1) Multiple myeloma Code(s): C90.00 - Multiple myeloma not having achieved remission Status: Acute Plan: 1. Relapsed Multiple myeloma 2. 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 Pt MRI on 06/15 showed stable c4 mass/cord compression from 05/11 Pt is s/p 10 radiation rx's and currently undergoing chemo with Dr Ascencio She has leukopenia and thrombocytopenia from her chemo Dr Ascencio thinks her weakness is related to the chemo I discussed the cord compression and weakness with NSG Dr Villasenor and we decided to place her on decadron and he will evaluate her and review her MRI. PT evaluation. will plan for snf unless pt/family not interested.
--- NOTE | 2018-06-16 17:18 | P.PNNS ---
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 She reports generalized weakness. She rreports mild pain. The weakness is affectintg her upper and lower extremities. She states she is on chemotherapy pills that she got about last but denies having a Port or IV chemo yet. No incontinence of stool or urine. Her lower extremities are weaker than her upper extremities. She has great difficulty ambulating. She is a history of multiple myeloma and is followed by oncology services. She states she has been using a walker for the past 3 years due to the leg weakness mainly affecting the thighs and some low back pain. She denies any new symptomatology and states it is all chronic. Denies any burning tingling in her feet. Denies any neck pain or any radicular symptomatology emanating either from her neck or her lower back. Denies any vision loss diplopia or difficulty with her speech MRI C spine was obtained. Neurosurgery consultation was requested 06/16. She reports persistent weakness in her lower extremities. no significangt neck pain Physical Exam Vital signs: Vital Signs 06/15/18 20:00 06/16/18 00:00 06/16/18 00:14 Temperature 98.4 F 98.2 F Pulse Rate 83 66 67 Respiratory Rate 16 17 Blood Pressure 103/63 118/70 Pulse Oximetry 97 97 06/16/18 04:00 06/16/18 04:42 06/16/18 07:00 Temperature 98.2 F Pulse Rate 61 57 L 56 L Respiratory Rate 17 Blood Pressure 116/75 Pulse Oximetry 97 06/16/18 08:06 06/16/18 11:00 06/16/18 11:36 Temperature 97.8 F Pulse Rate 57 L 85 82 Respiratory Rate 18 Blood Pressure 123/77 106/71 Pulse Oximetry 97 96 06/16/18 11:50 06/16/18 15:00 06/16/18 15:11 Temperature 98.4 F 97.4 F L Pulse Rate 86 60 Respiratory Rate 18 Blood Pressure 139/76 Pulse Oximetry 97 Intake & Output 06/15/18 06/16/18 06/16/18 18:59 06:59 18:59 Intake Total 1440 / 1440 740 / 740 Output Total 1450 / 1450 600 / 600 Balance -10 / -10 -600 / -600 740 / 740 Weight 63 kg Intake: Oral 1440 / 1440 740 / 740 Output: Urine 1450 / 1450 600 / 600 Other: Date of Last Bowel Movement 06/15/18 06/15/18 # Bowel Movements 2 2 Narrative: Ms Lowe is alert, awake. Comfortable, in no acute distress. Speech is fluent. Cranial nerve examination: pupils to be equal, round and reactive to light. Extra-ocular movements are intact. Facial motor and sensory function are normal and symmetrical. Gross hearing decreased bilaterally. Sternocleidomastoid and trapezius muscles are symmetrical. Other cranial nerves are intact. Neck is soft and supple with a decreased range of motion without much pain. Muscle strength: she is able to raise upper extremities against gravity without difficulty, her strenght is 4/5 in both upper extremities, able raise lower extremity gravity with strenght 3/5 in her lower extremities Sensory examination is intact to light touch and pin prick in both upper extremities, slightly reduced light touch distal toes but grossly pinprick in her lower extremities, proprioception is normal. Deep tendon reflexes are symmetrical in both upper and lower extremities. There is a bilateral plantar flexion response. No clonus Cerebellar examination is unremarkable, without deficits. Lungs are clear Heart regular rhythm is regular rate Skin warm and dry Assessment and Plan - Plan I again reviewed her clinical and radiological studies Chest X-Ray 06/14/18 16:21 CONCLUSION: Remote right rib fractures. Minimal basilar atelectasis or scarring. Head CT 06/14/18 16:21 CONCLUSION: 1. No acute intracranial abnormality. Venous Doppler Study 06/14/18 18:42 CONCLUSION: 1. The study is negative for bilateral lower extremity deep venous thrombosis. Cervical Spine MRI 06/15/18 09:06 CONCLUSION: 1. No significant change in the extra axial enhancing mass at the C4-5 level with mass effect on the cord and central canal stenosis. 2. Central canal stenosis again noted at C5-6 area in the area to broad-based disc osteophyte complex with mild flattening of the cord. There is no abnormal signal. This does not appear significantly changed. 3. Broad-based protrusion versus bulge at C3-4 with mild flattening the anterior cord and no abnormal signal without change 4. Posterior disc bulge at C6-7 with no mass effect on the cord. 5. Stable appearance of the vertebral bodies with chronic compression fracture deformity of C4. Neuro: Her weakness likely is likely to be multifactorial. Jeanine has cord compression, she is chronically debilitated and recently has completed chemotherapy, all of which play a role. She will be evaluated by a neurologist today I discussed with her the alternatives of treatment which will depend on the neurology recommendations aggressive pulmonary toilette, nasotracheal suction, and breathing treatments with nebulizers. Daily PT and OT Renal: Continue to monitor closely urine output, BUN and creatinine Endocrine: Continue to Monitor serial Acu checks and SSI as needed in detail ID continue to monitor for signs of infection Continue Protonix for stress ulcer prophylaxis Continue Ilya hose and SCD's for DVT prophylaxis Caprini VTE Risk Assessment Caprini Risk Assessment Model: Point Value = 1 Point Value = 2 Point Value = 3 Point Value = 5 Age 41-60 Minor surgery BMI > 25 kg/m2 Swollen legs Varicose veins or History of unexplained or recurrent spontaneous Oral contraceptives or hormone replacement Sepsis (< 1 month) Serious lung disease, including pneumonia (< 1 month) Abnormal pulmonary function Acute myocardial infarction Congestive heart failure (< 1 month) History of inflammatory bowel disease Medical patient at bed rest Age 61-74 Arthroscopic surgery Major open surgery (> 45 min) Laparoscopic surgery (> 45 min) Malignancy Confined to bed (> 72 hours) Immobilizing plaster cast Central venous access Age >= 75 History of VTE Family history of VTE Factor V Leiden Prothrombin [id number] Lupus anticoagulant Anticardiolipin antibodies Elevated serum homocysteine Heparin-induced thrombocytopenia Other congenital or acquired thrombophilia Stroke (< 1 month) Elective arthroplasty Hip, pelvis, or leg fracture Acute spinal cord injury (< 1 month) Prophylaxis Regimen: Total Risk Factor Score Risk Level Prophylaxis Regimen 0-1 Low Early ambulation 2 Moderate Order ONE of the following: *Sequential Compression Device (SCD) *Heparin 5000 units SQ BID 3-4 Higher Order ONE of the following medications: *Heparin 5000 units SQ TID *Enoxaparin/Lovenox 40 mg SQ daily (WT < 150 kg, CrCl > 30 mL/min) *Enoxaparin/Lovenox 30 mg SQ daily (WT < 150 kg, CrCl > 10-29 mL/min) *Enoxaparin/Lovenox 30 mg SQ BID (WT < 150 kg, CrCl > 30 mL/min) AND/OR *Sequential Compression Device (SCD) 5 or more Highest Order ONE of the following medications: *Heparin 5000 units SQ TID (Preferred with Epidurals) *Enoxaparin/Lovenox 40 mg SQ daily (WT < 150 kg, CrCl > 30 mL/min) *Enoxaparin/Lovenox 30 mg SQ daily (WT < 150 kg, CrCl > 10-29 mL/min) *Enoxaparin/Lovenox 30 mg SQ BID (WT < 150 kg, CrCl > 30 mL/min) AND *Sequential Compression Device (SCD) Further recommendations will be provided depending on the patient's clinical evaluation and follow up studies. Discussed with attending physician
--- NOTE | 2018-06-16 17:19 | P.CONNEU ---
History of Present Illness Service: Neurology Requesting Physician: Brent Villasenor Primary Care Provider: No Primary Care Physician Chief Complaint: weakness in lower extremities History of Present Illness: 82-year-old female admitted for weakness gait changes from what I understand. She is a history of multiple myeloma and is followed by oncology services. She states she has been using a walker for the past 3 years due to the leg weakness mainly affecting the thighs and some low back pain. She denies any new symptomatology and states it is all chronic. Denies any burning tingling in her feet. Denies any neck pain or any radicular symptomatology emanating either from her neck or her lower back. Denies any vision loss diplopia or dysphasia Review of Systems All other systems reviewed negative except as stated in HPI [facility] - History History Provided By: Patient - Medical History Medical History: Medical History (Last Reviewed 06/16/18 @ 10:12 by Jennifer Spencer) Anemia Glaucoma Hyperlipemia Hypertension Right leg DVT Thrombophlebitis of arm, left Multiple myeloma - Surgical History Surgical History: Surgical History (Last Reviewed 06/16/18 @ 10:11 by Jennifer Spencer) History of appendectomy History of cholecystectomy History of knee replacement procedure of left knee Hx of cardiac cath - Tobacco History Second Hand Smoke Exposure: No Smoking Status: Never smoker - Alcohol History How Often Do You Have a Drink Containing Alcohol: Never - Substance Use History Substance History: No History of Abuse - Immunization History Tetanus Immunization: Unsure Medications and Allergies Active Medications: Active Medications Hydrocodone Bitart/Acetaminophen ([place] 7.5/325) 1 tab PO Q6H PRN PRN Reason: pain 3-10 Last Admin: 06/15/18 18:38 Dose: 1 tab Al Hydroxide/Mg Hydroxide (Milk Of Lavern Newman) 30 ml PO Q12H PRN PRN Reason: Mild Constipation Apixaban (Eliquis) 5 mg PO Q12HR MAT Last Admin: 06/16/18 09:12 Dose: 5 mg Bisacodyl (Dulcolax Supp) 10 mg RECTAL DAILY PRN PRN Reason: SEVERE CONSITIPATION Dexamethasone Sodium Phosphate (Decadron Inj) 4 mg IV.PUSH Q6HR MAT Last Admin: 06/16/18 11:43 Dose: 4 mg Enalapril Maleate (Vasotec) 5 mg PO Q12HR MAT Last Admin: 06/16/18 09:11 Dose: 5 mg Escitalopram Oxalate (Lexapro) 5 mg PO DAILY [facility] Last Admin: 06/16/18 09:12 Dose: 5 mg Lactulose (Lactulose Liq) 30 ml PO DAILY PRN PRN Reason: SEVERE CONSITIPATION Non-Formulary Drug: Benzocaine/Menthol 15 Mg/3.6 Mg Lozenge Sugar Free(Cepacol Sugar-Free) 1 each BUCCAL Q2H PRN PRN Reason: SORE THROAT Last Admin: 06/15/18 21:02 Dose: 1 each Ondansetron HCl (Zofran Odt) 4 mg PO Q6H PRN PRN Reason: NAUSEA OR VOMITING Potassium Chloride (Klor-Con 10) 10 meq PO DAILY [facility] Last Admin: 06/16/18 09:11 Dose: 10 meq Senna/Docusate Sodium (Luisa-Colace) 1 tab PO BID [facility] Last Admin: 06/16/18 09:11 Dose: 1 tab Sennosides (Senokot) 17.2 mg PO Q12H PRN PRN Reason: Moderate Constipation Sodium Chloride (Ns Flush) 2 ml IV.FLUSH PRN PRN PRN Reason: FLUSH AFTER USING IV ACCESS Temazepam (Restoril) 15 mg PO HS PRN PRN Reason: INSOMNIA Allergies Allergy/AdvReac Type Severity Reaction Status Date / Time acetaminophen Allergy Severe Rash Verified 06/14/18 17:01 oxycodone Allergy Severe Rash Verified 06/14/18 17:01 rofecoxib Allergy Severe ITCHING Verified 06/14/18 17:01 Home Medications Medication Instructions Recorded Confirmed Type Revlimid 10 mg PO DAILY 06/15/18 06/15/18 History apixaban [Eliquis] 5 mg PO BID 06/15/18 06/15/18 History aspirin 06/15/18 History enalapril maleate 5 mg PO BID 06/15/18 06/15/18 History escitalopram oxalate 5 mg PO DAILY 06/15/18 06/15/18 History hydrocodone-acetaminophen 1 tab PO Q6H PRN 06/15/18 06/15/18 History potassium chloride [K-Tab] 10 mg PO DAILY 06/15/18 06/15/18 History Exam Vital signs: Vital Signs 06/15/18 20:00 06/16/18 00:00 06/16/18 00:14 Temperature 98.4 F 98.2 F Pulse Rate 83 66 67 Respiratory Rate 16 17 Blood Pressure 103/63 118/70 Pulse Oximetry 97 97 06/16/18 04:00 06/16/18 04:42 06/16/18 07:00 Temperature 98.2 F Pulse Rate 61 57 L 56 L Respiratory Rate 17 Blood Pressure 116/75 Pulse Oximetry 97 06/16/18 08:06 06/16/18 11:00 06/16/18 11:36 Temperature 97.8 F Pulse Rate 57 L 85 82 Respiratory Rate 18 Blood Pressure 123/77 106/71 Pulse Oximetry 97 96 06/16/18 11:50 06/16/18 15:00 06/16/18 15:11 Temperature 98.4 F 97.4 F L Pulse Rate 86 60 Respiratory Rate 18 Blood Pressure 139/76 Pulse Oximetry 97 Intake & Output 06/15/18 06/16/18 06/16/18 18:59 06:59 18:59 Intake Total 1440 / 1440 740 / 740 Output Total 1450 / 1450 600 / 600 Balance -10 / -10 -600 / -600 740 / 740 Weight 63 kg Intake: Oral 1440 / 1440 740 / 740 Output: Urine 1450 / 1450 600 / 600 Other: Date of Last Bowel Movement 06/15/18 06/15/18 # Bowel Movements 2 2 Narrative: GENERAL: Well nourished patient, in no apparent distress. SKIN: Warm and dry. HEAD: Atraumatic. Normocephalic. EYES: Pupils equal and round. No scleral icterus. No injection or drainage. ENT: Nose without drainage. NECK: Trachea midline. Neck is supple. CARDIOVASCULAR: Normal rate and regular rhythm without murmurs, RESPIRATORY: Symmetric, unlabored respirations. GASTROINTESTINAL: Abdomen soft, non-tender, NEUROLOGICAL: Awake alert oriented 3 fluent articulate no aphasia. Extraocular movements intact no facial asymmetry tongue midline able raise upper extremity gravity without difficulty, able raise lower extremity gravity for 3-5 seconds, hip flexor weakness lower extremity edema, left knee surgery scar noted. She has pes planus, slightly reduced light touch distal toes but grossly pinprick proprioception were normal. No clonus plantarflex response reflexes are trace, gait not assessed secondary to fall risk - Constitutional no acute distress - Routine HEENT Exam Head: Present: normocephalic, atraumatic Eye: Present: EOMI, PERRL Results - Labs CBC & Chem 7: 06/16/18 04:38 06/15/18 07:30 Labs: Laboratory Results - last 24 hr 06/16/18 04:38 WBC 1.7 L RBC 4.29 Hgb 13.2 Hct 39.5 MCV 92.0 MCH 30.8 MCHC 33.4 RDW 18.9 H Plt Count 53 L MPV 9.1 Prelim Diff (Auto) Slide review pending Neut % (Auto) 93.7 H Lymph % (Auto) 3.7 L [place] % (Auto) 2.5 Eos % (Auto) 0.0 Baso % (Auto) 0.1 Neut # (Auto) 1.6 L Lymph # (Auto) 0.1 L [place] # (Auto) 0.0 Eos # (Auto) 0.0 Baso # (Auto) 0.0 WBC Differential Manual diff final Seg Neuts % (Manual) 91 H Band Neuts % (Manual) 4 Lymphocytes % (Manual) 4 L Monocytes % (Manual) 1 Abs Neuts (Manual) 1.6 L Differential Comment . Platelet Estimate Low L Platelet Morphology Normal Ovalocytes 1+ H Review/Management - Diagnosis (1) Peripheral neuropathy Code(s): G62.9 - Polyneuropathy, unspecified Status: Acute Current Visit: Yes (2) Cervical spinal mass Code(s): G95.9 - Disease of spinal cord, unspecified Status: Acute Current Visit: Yes (3) Multiple myeloma not having achieved remission Code(s): C90.00 - Multiple myeloma not having achieved remission Status: Acute Current Visit: Yes (4) Multiple myeloma Code(s): C90.00 - Multiple myeloma not having achieved remission Status: Acute Current Visit: Yes - Review/Management Plan: Very mild distal reduction and light touch may be pus which may be part of a mild neuropathy however unlikely to be playing any major role in her gait disorder which is chronic and ongoing for the past 3 years requiring her walker according the patient. Suspect her gait disorder is multifactorial related to spinal arthritis, lumbar spondylosis, arthritic knees, lower extremity edema, hip flexor weakness which may be related to mild myopathy possibly related to chemotherapeutic agents or multiple myeloma No upper motor neuron signs on exam CK normal Recommendations Check tsh, ESR CRP, b12 physical therapy for hip flexor strengthening and balance Outpatient EMG nerve conduction study May benefit from inpatient rehab
[2018-06-16 21:47] LABS: C-Reactive Protein 1.1 mg/dL (0.00-0.30)
[2018-06-16 22:12] LABS: Thyroid Stimulating Hormone 0.092 uIU/mL (0.358-3.740)
[2018-06-17 07:00] LABS: Hematocrit 36.3 % (35.0-46.0); Hemoglobin 12.1 gm/dL (11.6-15.3); Lymph # (Auto) 0.2 th/mm3 (1.0-4.8); Lymph % (Auto) 4.7 % (9.0-44.0); Mean Corpuscular HGB Conc 33.2 % (32.0-36.0); Mean Corpuscular Hemoglobin 30.5 pg (27.0-34.0); Mean Corpuscular Volume 91.7 fL (80.0-100.0); Mean Platelet Volume 9.1 fL (7.0-11.0); Mono # (Auto) 0.1 th/mm3 (0.0-0.9); Mono % (Auto) 2.9 % (0.0-8.0); Neut # (Auto) 3.4 th/mm3 (1.8-7.7); Neut % (Auto) 92.4 % (16.0-70.0); Platelet Count 55 th/mm3 (150-450); Red Blood Count 3.97 mil/mm3 (4.00-5.30); Red Cell Distribution Width 18.7 % (11.6-17.2); White Blood Count 3.7 th/mm3 (4.0-11.0)
--- NOTE | 2018-06-17 08:02 | P.PNONC ---
Subjective Interval history: Feeling better. Denies any neck pain or back pain. Was able to sit in the chair yesterday. She was able to transfer to the commode. She was walking with physical therapy but has not started walking yet. Denies any chest pain or shortness of breath. Denies any nausea vomiting. Numbness of her hands and feet are stable. Objective Vital Signs/Intake & Output: Vital Signs 06/16/18 08:06 06/16/18 11:00 06/16/18 11:36 Temperature 97.8 F Pulse Rate 57 L 85 82 Respiratory Rate 18 Blood Pressure 123/77 106/71 Pulse Oximetry 97 96 06/16/18 11:50 06/16/18 15:00 06/16/18 15:11 Temperature 98.4 F 97.4 F L Pulse Rate 86 60 Respiratory Rate 18 Blood Pressure 139/76 Pulse Oximetry 97 06/16/18 20:00 06/17/18 00:00 06/17/18 04:00 Temperature 98.7 F 98.4 F 98.9 F Pulse Rate 57 L 60 58 L Respiratory Rate 18 18 18 Blood Pressure 122/67 120/72 132/77 Pulse Oximetry 98 98 953 H 06/17/18 07:20 Temperature 97.4 F L Pulse Rate 62 Respiratory Rate 18 Blood Pressure 117/73 Pulse Oximetry 98 Intake & Output 06/16/18 06/17/18 06/17/18 18:59 06:59 18:59 Intake Total 1580 / 1580 Output Total 400 / 400 600 / 600 Balance 1180 / 1180 -600 / -600 Weight 63 kg Intake: Oral 1580 / 1580 Output: Urine 400 / 400 600 / 600 Other: Date of Last Bowel Movement 06/16/18 06/16/18 # Bowel Movements 1 Result Diagrams: 06/17/18 06:29 06/15/18 07:30 Laboratory Results: Laboratory Results - last 24 hr 06/16/18 06/16/18 06/16/18 04:38 20:45 20:45 WBC RBC Hgb Hct MCV MCH MCHC RDW Plt Count MPV Prelim Diff (Auto) Neut % (Auto) Lymph % (Auto) [place] % (Auto) Eos % (Auto) Baso % (Auto) Neut # (Auto) Lymph # (Auto) [place] # (Auto) Eos # (Auto) Baso # (Auto) WBC Differential Manual diff final Seg Neuts % (Manual) 91 H Band Neuts % (Manual) 4 Lymphocytes % (Manual) 4 L Monocytes % (Manual) 1 Abs Neuts (Manual) 1.6 L Differential Comment Platelet Estimate Low L Platelet Morphology Normal Ovalocytes 1+ H ESR 11 C-Reactive Protein 1.10 H Vitamin B12 810 TSH 0.092 L 06/17/18 06:29 WBC 3.7 L RBC 3.97 L Hgb 12.1 Hct 36.3 MCV 91.7 MCH 30.5 MCHC 33.2 RDW 18.7 H Plt Count 55 L MPV 9.1 Prelim Diff (Auto) Slide review pending Neut % (Auto) 92.4 H Lymph % (Auto) 4.7 L [place] % (Auto) 2.9 Eos % (Auto) 0.0 Baso % (Auto) 0.0 Neut # (Auto) 3.4 Lymph # (Auto) 0.2 L [place] # (Auto) 0.1 Eos # (Auto) 0.0 Baso # (Auto) 0.0 WBC Differential Seg Neuts % (Manual) Band Neuts % (Manual) Lymphocytes % (Manual) Monocytes % (Manual) Abs Neuts (Manual) Differential Comment . Platelet Estimate Platelet Morphology Ovalocytes ESR C-Reactive Protein Vitamin B12 TSH Medications: Active Medications Generic Name Dose Route Start Last Admin Trade Name Freq PRN Reason Stop Dose Admin Hydrocodone Bitart/Acetaminophen 1 tab 06/15/18 09:09 06/15/18 18:38 [place] 7.5/325 PO 1 tab Q6H PRN Administration pain 3-10 Apixaban 5 mg 06/15/18 10:00 06/16/18 22:19 Eliquis PO 5 mg Q12HR MAT Administration Enalapril Maleate 5 mg 06/15/18 10:00 06/16/18 22:19 Vasotec PO 5 mg Q12HR MAT Administration Escitalopram Oxalate 5 mg 06/15/18 10:00 06/16/18 09:12 Lexapro PO 5 mg DAILY MAT Administration Non-Formulary Dru each 06/15/18 16:15 06/15/18 21:02 Benzocaine/Menthol BUCCAL 1 each 15 Mg/3.6 Mg Lozenge Q2H PRN Administration Sugar Free(Cepacol SORE THROAT Sugar-Free) Potassium Chloride 10 meq 06/15/18 10:00 06/16/18 09:11 Klor-Con 10 PO 10 meq DAILY MAT Administration Senna/Docusate Sodium 1 tab 06/14/18 21:00 06/16/18 22:19 Luisa-Colace PO 1 tab BID MAT Administration Objective Remarks: GENERAL: Well-nourished, well-developed patient. SKIN: Warm and dry. HEAD: Normocephalic. EYES: No scleral icterus. No injection or drainage. NECK: Supple, trachea midline. No JVD or lymphadenopathy. LYMPHATIC: No adenopathy. CARDIOVASCULAR: Regular rate and rhythm without murmurs. RESPIRATORY: Breath sounds equal bilaterally. No accessory muscle use. GASTROINTESTINAL: Abdomen soft, non-tender, nondistended. EXTREMITIES: No cyanosis, or edema. MUSCULOSKELETAL: Adequate muscle tone. NEUROLOGICAL: No obvious focal deficit. Awake, alert, and oriented x3. Generalized weakness. PSYCHIATRIC: Appropriate mood and affect; insight and judgment normal. Assessment/Plan (1) Multiple myeloma not having achieved remission Code(s): C90.00 - Multiple myeloma not having achieved remission Status: Acute (2) Cervical spinal mass Code(s): G95.9 - Disease of spinal cord, unspecified Status: Acute - Plan 1. Stage III, IgG lambda multiple myeloma. She initially presented with back pain, renal insufficiency, and anemia. She was treated with RVd chemotherapy in 08/2014 with poor tolerance and developed ileus. She was then treated with CyBorD regimen for 8 cycles, completed in 05/2015 with a good response. She has been on maintenance Revlimid since that time. Recently, she was found to have progression of disease with increased immunoglobulin G level up to 2600. MRI of the cervical spine showed a C4 lesion encroaching on the anterior spinal cord. She then received radiation to the cervical spine, which she just completed about 2 weeks ago. She started on daratumumab, bortezomib and Decadron last week. She had 2 doses. I had dose reduced the bortezomib to 1 mg/m2. The patient is now admitted with increased weakness, which I think is due to the side effect of the chemotherapy. She denies any back pain or focal deficit. We will hold the chemotherapy for now and observe her closely. June 16, 2018: Continue to hold chemotherapy. June 17, 2018: Will resume chemotherapy when she is a little stronger. She can follow-up at oncology clinic after discharge. She will need rehab for the weakness. 2. History of back pain. MRI showed diffuse degenerative changes. Recently, she found to have a C4 lesion and received radiation. At this point, she denies any back pain. She has no focal deficit. However, given her history, I recommend getting an MRI of the spine for further evaluation. June 16, 2018: Cervical spine MRI showed stable C4 lesion with mild mass-effect. Patient denies any neck pain or back pain. She has no focal neurologic deficit. Neurosurgery has been consulted for further evaluation. The C4 lesion has been radiated, There is no evidence of progression of the lesion. June 17, 2018:. Evaluated by neurosurgery and neurology and no further intervention recommended at this time. Patient did continue physical therapy for the weakness. She lives alone at home and I think she will benefit with going to rehab center for continue physical therapy. 3. History of left upper extremity venous thrombosis. She also developed right lower extremity deep venous thrombosis. She is on Eliquis. 4. Pancytopenia due to recent chemotherapy. No need for transfusion at this time. June 16, 2018: CBC is stable, and patient is not neutropenic. June 17, 2018: Blood count has improved. She is not neutropenic. PLAN: 1. Hold chemotherapy at this time. 2. Consider going to rehab for physical therapy. 3. Monitor labs. 4. Discussed case with Dr. Luz.
--- NOTE | 2018-06-17 08:57 | P.PNIM ---
Subjective Interval history: feeling better. legs weak Physical Exam Vital signs: Vital Signs 06/16/18 11:00 06/16/18 11:36 06/16/18 11:50 Temperature 98.4 F Pulse Rate 85 82 Respiratory Rate 18 Blood Pressure 106/71 Pulse Oximetry 96 06/16/18 15:00 06/16/18 15:11 06/16/18 20:00 Temperature 97.4 F L 98.7 F Pulse Rate 86 60 57 L Respiratory Rate 18 18 Blood Pressure 139/76 122/67 Pulse Oximetry 97 98 06/17/18 00:00 06/17/18 04:00 06/17/18 07:20 Temperature 98.4 F 98.9 F 97.4 F L Pulse Rate 60 58 L 62 Respiratory Rate 18 18 18 Blood Pressure 120/72 132/77 117/73 Pulse Oximetry 98 953 H 98 Intake & Output 06/16/18 06/17/18 06/17/18 18:59 06:59 18:59 Intake Total 1580 / 1580 Output Total 400 / 400 600 / 600 Balance 1180 / 1180 -600 / -600 Weight 63 kg Intake: Oral 1580 / 1580 Output: Urine 400 / 400 600 / 600 Other: Date of Last Bowel Movement 06/16/18 06/16/18 # Bowel Movements 1 heart reg lung cta abd s/nt ext no edema Results - Labs CBC & Chem 7: 06/17/18 06:29 06/15/18 07:30 Laboratory Results - last 24 hr 06/16/18 06/16/18 06/17/18 20:45 20:45 06:29 WBC 3.7 L RBC 3.97 L Hgb 12.1 Hct 36.3 MCV 91.7 MCH 30.5 MCHC 33.2 RDW 18.7 H Plt Count 55 L MPV 9.1 Prelim Diff (Auto) Slide review pending Neut % (Auto) 92.4 H Lymph % (Auto) 4.7 L Aiken % (Auto) 2.9 Eos % (Auto) 0.0 Baso % (Auto) 0.0 Neut # (Auto) 3.4 Lymph # (Auto) 0.2 L [place] # (Auto) 0.1 Eos # (Auto) 0.0 Baso # (Auto) 0.0 Differential Comment . ESR 11 C-Reactive Protein 1.10 H Vitamin B12 810 TSH 0.092 L Assessment and Plan - Assessment (1) Multiple myeloma Code(s): C90.00 - Multiple myeloma not having achieved remission Status: Acute Plan: 1. Relapsed Multiple myeloma 2. c4 mass with some cord compression admitted with worsening lower ext weakness/falls and some upper ext colorer weakness per family She has peripheral neuropathy as well. Pt MRI on 06/15 showed stable c4 mass/cord compression from 05/11 Pt is s/p 10 radiation rx's and currently undergoing chemo with Dr Ascencio She has leukopenia and thrombocytopenia from her chemo Dr Ascencio thinks her weakness is related to the chemo I discussed the cord compression and weakness with NSG Dr Villasenor and we decided to place her on decadron and he will evaluate her and review her MRI. Pt seen by nsg and neurology. At present no surgical intervention will be pursued as it is not clearly going to benefit her weakness and risks will be high. She and her family agree with this decision and we agreed to consult CM for snf vs acute inpatient rehab placement dc once arrangement made per CM. stop decadron. going to snf she is on chronic norco for recurrent multiple myeloma and cervical mass. ongoing needs for narcotic pain control. will write for 7 days to cover in the snf.
[2018-06-17 09:04] LABS: Ovalocytes 2+; Platelet Morphology Normal (Normal)
[2018-06-17] MEDS: Senna/Docusate Sodium 8.6/50 MG Tablet PO SCH ×2 (09:49→20:47)
[2018-06-17] MEDS: Escitalopram 10 MG Tablet PO SCH (09:50)
--- NOTE | 2018-06-17 16:56 | P.PNNS ---
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 She reports generalized weakness. She rreports mild pain. The weakness is affectintg her upper and lower extremities. She states she is on chemotherapy pills that she got about last but denies having a Port or IV chemo yet. No incontinence of stool or urine. Her lower extremities are weaker than her upper extremities. She has great difficulty ambulating. She is a history of multiple myeloma and is followed by oncology services. She states she has been using a walker for the past 3 years due to the leg weakness mainly affecting the thighs and some low back pain. She denies any new symptomatology and states it is all chronic. Denies any burning tingling in her feet. Denies any neck pain or any radicular symptomatology emanating either from her neck or her lower back. Denies any vision loss diplopia or difficulty with her speech MRI C spine was obtained. Neurosurgery consultation was requested 06/16. She reports persistent weakness in her lower extremities. no significant neck pain 06/17. Remains with weakness,. Evaluated by neurologist. Plan to discharge to rehab Physical Exam Vital signs: Vital Signs 06/16/18 20:00 06/17/18 00:00 06/17/18 04:00 Temperature 98.7 F 98.4 F 98.9 F Pulse Rate 57 L 60 58 L Respiratory Rate 18 18 18 Blood Pressure 122/67 120/72 132/77 Pulse Oximetry 98 98 953 H 06/17/18 07:20 06/17/18 11:29 Temperature 97.4 F L 98.1 F Pulse Rate 62 78 Respiratory Rate 18 18 Blood Pressure 117/73 100/69 Pulse Oximetry 98 99 Intake & Output 06/16/18 06/17/18 06/17/18 18:59 06:59 18:59 Intake Total 1580 / 1580 480 / 480 Output Total 400 / 400 600 / 600 Balance 1180 / 1180 -600 / -600 480 / 480 Weight 63 kg Intake: Oral 1580 / 1580 480 / 480 Output: Urine 400 / 400 600 / 600 Other: Date of Last Bowel Movement 06/16/18 06/16/18 06/16/18 # Bowel Movements 1 1 Narrative: Ms Lowe is alert, awake. Comfortable, in no acute distress. Speech is fluent. Cranial nerve examination: pupils to be equal, round and reactive to light. Extra-ocular movements are intact. Facial motor and sensory function are normal and symmetrical. Gross hearing decreased bilaterally. Sternocleidomastoid and trapezius muscles are symmetrical. Other cranial nerves are intact. Neck is soft and supple with a decreased range of motion without much pain. Muscle strength: she is able to raise upper extremities against gravity without difficulty, her strenght is 4/5 in both upper extremities, able raise lower extremity gravity with strenght 3/5 in her lower extremities Sensory examination is intact to light touch and pin prick in both upper extremities, slightly reduced light touch distal toes but grossly pinprick in her lower extremities, proprioception is normal. Deep tendon reflexes are symmetrical in both upper and lower extremities. There is a bilateral plantar flexion response. No clonus Cerebellar examination is unremarkable, without deficits. Lungs are clear Heart regular rhythm is regular rate Skin warm and dry Assessment and Plan - Plan Neuro: I again reviewed her MRI continue neuro checks every 4 hours. Her weakness is multifactorial. She is chronically debilitated and recently has completed chemotherapy, all of which play a role. 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 She has received radiation therapy. Will continue to monitor I again discussed with her the alternatives of treatment, which will depend on her clinical evolution Continue aggressive pulmonary toilette, nasotracheal suction, and breathing treatments with nebulizers. Daily PT and OT Renal: Continue to monitor closely urine output, BUN and creatinine Endocrine: Continue to Monitor serial Acu checks and SSI as needed in detail ID continue to monitor for signs of infection Continue Protonix for stress ulcer prophylaxis Continue Ilya hose and SCD's for DVT prophylaxis Caprini VTE Risk Assessment Caprini Risk Assessment Model: Point Value = 1 Point Value = 2 Point Value = 3 Point Value = 5 Age 41-60 Minor surgery BMI > 25 kg/m2 Swollen legs Varicose veins or History of unexplained or recurrent spontaneous Oral contraceptives or hormone replacement Sepsis (< 1 month) Serious lung disease, including pneumonia (< 1 month) Abnormal pulmonary function Acute myocardial infarction Congestive heart failure (< 1 month) History of inflammatory bowel disease Medical patient at bed rest Age 61-74 Arthroscopic surgery Major open surgery (> 45 min) Laparoscopic surgery (> 45 min) Malignancy Confined to bed (> 72 hours) Immobilizing plaster cast Central venous access Age >= 75 History of VTE Family history of VTE Factor V Leiden Prothrombin [id number] Lupus anticoagulant Anticardiolipin antibodies Elevated serum homocysteine Heparin-induced thrombocytopenia Other congenital or acquired thrombophilia Stroke (< 1 month) Elective arthroplasty Hip, pelvis, or leg fracture Acute spinal cord injury (< 1 month) Prophylaxis Regimen: Total Risk Factor Score Risk Level Prophylaxis Regimen 0-1 Low Early ambulation 2 Moderate Order ONE of the following: *Sequential Compression Device (SCD) *Heparin 5000 units SQ BID 3-4 Higher Order ONE of the following medications: *Heparin 5000 units SQ TID *Enoxaparin/Lovenox 40 mg SQ daily (WT < 150 kg, CrCl > 30 mL/min) *Enoxaparin/Lovenox 30 mg SQ daily (WT < 150 kg, CrCl > 10-29 mL/min) *Enoxaparin/Lovenox 30 mg SQ BID (WT < 150 kg, CrCl > 30 mL/min) AND/OR *Sequential Compression Device (SCD) 5 or more Highest Order ONE of the following medications: *Heparin 5000 units SQ TID (Preferred with Epidurals) *Enoxaparin/Lovenox 40 mg SQ daily (WT < 150 kg, CrCl > 30 mL/min) *Enoxaparin/Lovenox 30 mg SQ daily (WT < 150 kg, CrCl > 10-29 mL/min) *Enoxaparin/Lovenox 30 mg SQ BID (WT < 150 kg, CrCl > 30 mL/min) AND *Sequential Compression Device (SCD) Discussed with her condition with Dr Ortiz and Dr Willoughby
--- NOTE | 2018-06-18 07:18 | P.PNONC ---
Subjective Interval history: Patient is feeling stronger. She sat up in the chair yesterday. She was able to take a few steps with the physical therapy. She denies any neck pain or back pain. She has no bowel or urinary incontinence. She has chronic paresthesia of the hands and feet but stable. She has no chest pain or shortness of breath. Objective Vital Signs/Intake & Output: Vital Signs 06/17/18 07:20 06/17/18 08:00 06/17/18 11:29 Temperature 97.4 F L 98.1 F Pulse Rate 62 60 78 Respiratory Rate 18 18 Blood Pressure 117/73 100/69 Pulse Oximetry 98 99 06/17/18 12:00 06/17/18 16:00 06/17/18 16:52 Temperature 98.3 F Pulse Rate 82 56 L 63 Respiratory Rate 20 Blood Pressure 110/69 Pulse Oximetry 97 06/17/18 20:00 06/18/18 00:00 06/18/18 04:00 Temperature 98.9 F 98.9 F 97.8 F Pulse Rate 74 71 65 Respiratory Rate 17 17 17 Blood Pressure 95/58 L 121/83 198/76 H Pulse Oximetry 97 99 98 Intake & Output 06/17/18 06/18/18 06/18/18 18:59 06:59 18:59 Intake Total 480 / 480 Output Total 600 / 600 Balance 480 / 480 -600 / -600 Weight 63 kg Intake: Oral 480 / 480 Output: Urine 600 / 600 Other: # Voids 1 Date of Last Bowel Movement 06/16/18 06/16/18 # Bowel Movements 1 1 Result Diagrams: 06/17/18 06:29 06/15/18 07:30 Laboratory Results: Laboratory Results - last 24 hr 06/17/18 06:29 WBC Differential . Diff Scan Auto diff confirmed Platelet Estimate Low L Platelet Morphology Normal Ovalocytes 2+ H Medications: Active Medications Generic Name Dose Route Start Last Admin Trade Name Freq PRN Reason Stop Dose Admin Hydrocodone Bitart/Acetaminophen 1 tab 06/15/18 09:09 06/15/18 18:38 [place] 7.5/325 PO 1 tab Q6H PRN Administration pain 3-10 Apixaban 5 mg 06/15/18 10:00 06/17/18 20:47 Eliquis PO 5 mg Q12HR MAT Administration Enalapril Maleate 5 mg 06/15/18 10:00 07/25/18 20:50 Vasotec PO Not Given Q12HR MAT Escitalopram Oxalate 5 mg 06/15/18 10:00 06/17/18 09:50 Lexapro PO 5 mg DAILY MAT Administration Non-Formulary Dru each 06/15/18 16:15 06/15/18 21:02 Benzocaine/Menthol BUCCAL 1 each 15 Mg/3.6 Mg Lozenge Q2H PRN Administration Sugar Free(Cepacol SORE THROAT Sugar-Free) Potassium Chloride 10 meq 06/15/18 10:00 06/17/18 09:49 Klor-Con 10 PO 10 meq DAILY MAT Administration Senna/Docusate Sodium 1 tab 06/14/18 21:00 06/17/18 20:47 Luisa-Colace PO 1 tab BID MAT Administration Sodium Chloride 2 ml 06/14/18 16:21 06/17/18 09:51 Ns Flush IV.FLUSH 2 ml PRN PRN Administration FLUSH AFTER USING IV ACCESS Objective Remarks: GENERAL: Well-nourished, well-developed patient. SKIN: Warm and dry. HEAD: Normocephalic. EYES: No scleral icterus. No injection or drainage. NECK: Supple, trachea midline. No JVD or lymphadenopathy. LYMPHATIC: No adenopathy. CARDIOVASCULAR: Regular rate and rhythm without murmurs. RESPIRATORY: Breath sounds equal bilaterally. No accessory muscle use. GASTROINTESTINAL: Abdomen soft, non-tender, nondistended. EXTREMITIES: No cyanosis, trace bilateral lower extremities edema. MUSCULOSKELETAL: Adequate muscle tone. NEUROLOGICAL: No obvious focal deficit. Awake, alert, and oriented x3. PSYCHIATRIC: Appropriate mood and affect; insight and judgment normal. Assessment/Plan (1) Multiple myeloma not having achieved remission Code(s): C90.00 - Multiple myeloma not having achieved remission Status: Acute (2) Cervical spinal mass Code(s): G95.9 - Disease of spinal cord, unspecified Status: Acute - Plan 1. Stage III, IgG lambda multiple myeloma. She initially presented with back pain, renal insufficiency, and anemia. She was treated with RVd chemotherapy in 08/2014 with poor tolerance and developed ileus. She was then treated with CyBorD regimen for 8 cycles, completed in 05/2015 with a good response. She has been on maintenance Revlimid since that time. Recently, she was found to have progression of disease with increased immunoglobulin G level up to 2600. MRI of the cervical spine showed a C4 lesion encroaching on the anterior spinal cord. She then received radiation to the cervical spine, which she just completed about 2 weeks ago. She started on daratumumab, bortezomib and Decadron last week. She had 2 doses. I had dose reduced the bortezomib to 1 mg/m2. The patient is now admitted with increased weakness, which I think is due to the side effect of the chemotherapy. She denies any back pain or focal deficit. We will hold the chemotherapy for now and observe her closely. June 16, 2018: Continue to hold chemotherapy. June 17, 2018: Will resume chemotherapy when she is a little stronger. She can follow-up at oncology clinic after discharge. She will need rehab for the weakness. June 18, 2018: She can follow-up in oncology clinic to continue treatment for multiple myeloma. Plan to dose reduce her chemotherapy. 2. History of back pain. MRI showed diffuse degenerative changes. Recently, she found to have a C4 lesion and received radiation. At this point, she denies any back pain. She has no focal deficit. However, given her history, I recommend getting an MRI of the spine for further evaluation. June 16, 2018: Cervical spine MRI showed stable C4 lesion with mild mass-effect. Patient denies any neck pain or back pain. She has no focal neurologic deficit. Neurosurgery has been consulted for further evaluation. The C4 lesion has been radiated, There is no evidence of progression of the lesion. June 17, 2018:. Evaluated by neurosurgery and neurology and no further intervention recommended at this time. Patient did continue physical therapy for the weakness. She lives alone at home and I think she will benefit with going to rehab center for continue physical therapy. June 18, 2018: She is feeling a little stronger and able to work with physical therapy. 3. History of left upper extremity venous thrombosis. She also developed right lower extremity deep venous thrombosis. She is on Eliquis. 4. Pancytopenia due to recent chemotherapy. No need for transfusion at this time. June 16, 2018: CBC is stable, and patient is not neutropenic. June 17, 2018: Blood count has improved. She is not neutropenic. PLAN: 1. Follow-up in oncology clinic after discharge. 2. Consider going to rehab for physical therapy. 3. Monitor labs. 4. Discussed case with Dr. Leary.
--- NOTE | 2018-06-18 07:38 | P.DS ---
Date of admission: 06/14/18 20:29 Primary care physician: No Primary Care Physician Anticipated date of discharge: 06/18/18 Brief History from admission: Pt is 82 yo female with multiple myeloma. Pt was diagnosed in 2013 and was in remission. Recently found to have C4 mass and has been diagnosed with recurrent multiple myeloma. She follows with dr Ascencio who recently discovered a C4 mass with some cord compression. She was sent to radiation oncology for 10 radiation treatments. Over past few days pt has had more lower extremity weakness and having difficulty standing from a seated position. She had bilateral machine stapler strength weakness per her brother. She was brought to ED for concern over progressive myelopathy from cord compression. She has been getting chemotherapathy as well. DS: Diagnosis - Discharge Diagnosis (1) Multiple myeloma Status: Chronic DS: Medications - Discharge Medications Prescriptions: hydrocodone-acetaminophen [[place]] 1 tab PO Q6H PRN #28 tab PRN Reason: Pain DS: Summary Hospital Course: Assessment (1) Multiple myeloma Code(s): C90.00 - Multiple myeloma not having achieved remission Status: Acute Plan: 1. Relapsed Multiple myeloma 2. c4 mass with some cord compression admitted with worsening lower ext weakness/falls and some upper ext machine stapler weakness per family She has peripheral neuropathy as well. Pt MRI on 06/15 showed stable c4 mass/cord compression from 05/11 Pt is s/p 10 radiation rx's and currently undergoing chemo with Dr Ascencio She has leukopenia and thrombocytopenia from her chemo Dr Ascencio thinks her weakness is related to the chemo I discussed the cord compression and weakness with NSG Dr Villasenor and we decided to place her on decadron and he will evaluate her and review her MRI. Pt seen by nsg and neurology. At present no surgical intervention will be pursued as it is not clearly going to benefit her weakness and risks will be high. She and her family agree with this decision and we agreed to consult CM for snf vs acute inpatient rehab placement dc once arrangement made per CM. stop decadron. going to rehab: she is on chronic norco for recurrent multiple myeloma and cervical mass. ongoing needs for narcotic pain control. will write for 7 days to cover in the rehab - Time Spent with Patient Total time spent providing and/or coordinating discharge services: - Quality: VTE Deep Vein Thrombosis/Pulmonary Embolism Present on Admission: No Exam Vital signs: Vital Signs 06/17/18 08:00 06/17/18 11:29 06/17/18 12:00 Temperature 98.1 F Pulse Rate 60 78 82 Respiratory Rate 18 Blood Pressure 100/69 Pulse Oximetry 99 06/17/18 16:00 06/17/18 16:52 06/17/18 20:00 Temperature 98.3 F 98.9 F Pulse Rate 56 L 63 74 Respiratory Rate 20 17 Blood Pressure 110/69 95/58 L Pulse Oximetry 97 97 06/18/18 00:00 06/18/18 04:00 Temperature 98.9 F 97.8 F Pulse Rate 71 65 Respiratory Rate 17 17 Blood Pressure 121/83 198/76 H Pulse Oximetry 99 98 Intake & Output 06/17/18 06/18/18 06/18/18 18:59 06:59 18:59 Intake Total 480 / 480 Output Total 600 / 600 Balance 480 / 480 -600 / -600 Weight 63 kg Intake: Oral 480 / 480 Output: Urine 600 / 600 Other: # Voids 1 Date of Last Bowel Movement 06/16/18 06/16/18 # Bowel Movements 1 1 heart reg lung cta abd s/nt ext no edema Results Procedures completed during hospitalization: no procedures Labs on day of discharge: Labs from last 24 hours 06/17/18 06:29 WBC Differential . Diff Scan Auto diff confirmed Platelet Estimate Low L Platelet Morphology Normal Ovalocytes 2+ H - Impressions ITS Impressions Chest X-Ray 06/14/18 16:21 CONCLUSION: Remote right rib fractures. Minimal basilar atelectasis or scarring. Head CT 06/14/18 16:21 CONCLUSION: 1. No acute intracranial abnormality. . Venous Doppler Study 06/14/18 18:42 CONCLUSION: 1. The study is negative for bilateral lower extremity deep venous thrombosis. Cervical Spine MRI 06/15/18 09:06 CONCLUSION: 1. No significant change in the extra axial enhancing mass at the C4-5 level with mass effect on the cord and central canal stenosis. 2. Central canal stenosis again noted at C5-6 area in the area to broad-based disc osteophyte complex with mild flattening of the cord. There is no abnormal signal. This does not appear significantly changed. 3. Broad-based protrusion versus bulge at C3-4 with mild flattening the anterior cord and no abnormal signal without change 4. Posterior disc bulge at C6-7 with no mass effect on the cord. 5. Stable appearance of the vertebral bodies with chronic compression fracture deformity of C4. Discharge Plan - Discharge Disposition Patient Disposition: 03 Discharge to SNF - Discharge Condition Condition: Stable - Discharge Order Discharge Orders: Discharge Order (Routine); Ordered 06/17/18 Ordered By: Mg Luz - Discharge Details Anticipated Discharge Date: 06/17/18 Discharge Comment: ok to dc to snf once arrangements made. - Physicians Team Primary Care Provider: Primary Care Tanvi Kearney Attending Provider: Mg Luz Other Providers: Robert Ascencio MD ; Brent Villasenor MD ; [facility]
[2018-06-18 08:00] VITALS: RESP 16; O2SAT 97
[2018-06-18] MEDS: Escitalopram 10 MG Tablet PO SCH (08:26)
[2018-06-18] MEDS: MENTHOL BUCCAL PRN (08:27)
[2018-06-18] MEDS: BENZOCAINE BUCCAL PRN (08:27)
[2018-06-18] MEDS: Senna/Docusate Sodium 8.6/50 MG Tablet PO SCH (08:27)
[2018-06-18] MEDS: [UNRECOGNIZED DRUG - OTHER] BUCCAL PRN (08:27)
[2018-06-18 13:20] VITALS: BP 98/53; PULSE 91; TEMP 97.6
--- NOTE | 2018-06-18 18:42 | P.PNNS ---
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 She reports generalized weakness. She rreports mild pain. The weakness is affectintg her upper and lower extremities. She states she is on chemotherapy pills that she got about last but denies having a Port or IV chemo yet. No incontinence of stool or urine. Her lower extremities are weaker than her upper extremities. She has great difficulty ambulating. She is a history of multiple myeloma and is followed by oncology services. She states she has been using a walker for the past 3 years due to the leg weakness mainly affecting the thighs and some low back pain. She denies any new symptomatology and states it is all chronic. Denies any burning tingling in her feet. Denies any neck pain or any radicular symptomatology emanating either from her neck or her lower back. Denies any vision loss diplopia or difficulty with her speech MRI C spine was obtained. Neurosurgery consultation was requested 06/16. She reports persistent weakness in her lower extremities. no significant neck pain 06/17. Remains with weakness,. Evaluated by neurologist. Plan to discharge to rehab 06/18. Remains with weakness. Referred for impatient rehabilitation. Non surgical treatment Physical Exam Vital signs: Vital Signs 06/17/18 20:00 06/18/18 00:00 06/18/18 04:00 Temperature 98.9 F 98.9 F 97.8 F Pulse Rate 74 71 65 Respiratory Rate 17 17 17 Blood Pressure 95/58 L 121/83 198/76 H Pulse Oximetry 97 99 98 06/18/18 07:56 06/18/18 09:28 06/18/18 13:16 Temperature 98.1 F 97.6 F Pulse Rate 84 74 91 H Respiratory Rate 16 16 Blood Pressure 107/65 98/53 L Pulse Oximetry 97 97 Intake & Output 06/17/18 06/18/18 06/18/18 18:59 06:59 18:59 Intake Total 480 / 480 50 / 50 Output Total 600 / 600 Balance 480 / 480 -600 / -600 50 / 50 Weight 63 kg Intake: Oral 480 / 480 50 / 50 Output: Urine 600 / 600 Other: # Voids 1 Date of Last Bowel Movement 06/16/18 06/16/18 # Bowel Movements 1 1 Narrative: Ms Lowe is alert, awake. Comfortable, in no acute distress. Speech is fluent. Cranial nerve examination: pupils to be equal, round and reactive to light. Extra-ocular movements are intact. Facial motor and sensory function are normal and symmetrical. Gross hearing decreased bilaterally. Sternocleidomastoid and trapezius muscles are symmetrical. Other cranial nerves are intact. Neck is soft and supple with a decreased range of motion without much pain. Muscle strength: she is able to raise upper extremities against gravity without difficulty, her strenght is 4/5 in both upper extremities, able raise lower extremity gravity with strenght 3/5 in her lower extremities Sensory examination is intact to light touch and pin prick in both upper extremities, slightly reduced light touch distal toes but grossly pinprick in her lower extremities, proprioception is normal. Deep tendon reflexes are symmetrical in both upper and lower extremities. There is a bilateral plantar flexion response. No clonus Cerebellar examination is unremarkable, without deficits. Lungs are clear Heart regular rhythm is regular rate Skin warm and dry Assessment and Plan - Plan Continue nonoperative treatment. Her weakness likely is likely multifactorial. Cleared for discharge to rehab I discussed with her the alternatives of treatment which will depend on the neurology recommendations aggressive pulmonary toilette, nasotracheal suction, and breathing treatments with nebulizers. Daily PT and OT Renal: Continue to monitor closely urine output, BUN and creatinine Endocrine: Continue to Monitor serial Acu checks and SSI as needed in detail ID continue to monitor for signs of infection Continue Protonix for stress ulcer prophylaxis Continue Ilya hose and SCD's for DVT prophylaxis Caprini VTE Risk Assessment Caprini Risk Assessment Model: Point Value = 1 Point Value = 2 Point Value = 3 Point Value = 5 Age 41-60 Minor surgery BMI > 25 kg/m2 Swollen legs Varicose veins or History of unexplained or recurrent spontaneous Oral contraceptives or hormone replacement Sepsis (< 1 month) Serious lung disease, including pneumonia (< 1 month) Abnormal pulmonary function Acute myocardial infarction Congestive heart failure (< 1 month) History of inflammatory bowel disease Medical patient at bed rest Age 61-74 Arthroscopic surgery Major open surgery (> 45 min) Laparoscopic surgery (> 45 min) Malignancy Confined to bed (> 72 hours) Immobilizing plaster cast Central venous access Age >= 75 History of VTE Family history of VTE Factor V Leiden Prothrombin [id number] Lupus anticoagulant Anticardiolipin antibodies Elevated serum homocysteine Heparin-induced thrombocytopenia Other congenital or acquired thrombophilia Stroke (< 1 month) Elective arthroplasty Hip, pelvis, or leg fracture Acute spinal cord injury (< 1 month) Prophylaxis Regimen: Total Risk Factor Score Risk Level Prophylaxis Regimen 0-1 Low Early ambulation 2 Moderate Order ONE of the following: *Sequential Compression Device (SCD) *Heparin 5000 units SQ BID 3-4 Higher Order ONE of the following medications: *Heparin 5000 units SQ TID *Enoxaparin/Lovenox 40 mg SQ daily (WT < 150 kg, CrCl > 30 mL/min) *Enoxaparin/Lovenox 30 mg SQ daily (WT < 150 kg, CrCl > 10-29 mL/min) *Enoxaparin/Lovenox 30 mg SQ BID (WT < 150 kg, CrCl > 30 mL/min) AND/OR *Sequential Compression Device (SCD) 5 or more Highest Order ONE of the following medications: *Heparin 5000 units SQ TID (Preferred with Epidurals) *Enoxaparin/Lovenox 40 mg SQ daily (WT < 150 kg, CrCl > 30 mL/min) *Enoxaparin/Lovenox 30 mg SQ daily (WT < 150 kg, CrCl > 10-29 mL/min) *Enoxaparin/Lovenox 30 mg SQ BID (WT < 150 kg, CrCl > 30 mL/min) AND *Sequential Compression Device (SCD) Further recommendations will be provided depending on the patient's clinical evaluation and follow up studies. Discussed with attending physician
== END 2018-06-18 14:03 ==
LOC: NEPC 15:35 → NEDA 20:29 → HCIN 06-15 00:22 → NEDA 06-15 00:22
PROVIDERS: ADMIT Hospitalist; ATTEND Hospitalist